=== PATIENT | male | born 1960 | race African-American/Black ===

== ENCOUNTER 2016-05-16 19:37 | Inpatient (IN) | payer OTHER ==
[~2016-05-16] VITALS: Ht 165.1 cm; Wt 57.1 kg
[~2016-05-16 19:37] MED LIST: ASPI-825 PO; GABA-529 PO; INSLAN SQ; [UNRECOGNIZED DRUG - REMARK]; [UNRECOGNIZED DRUG - REMARK]
[2016-05-16 19:51] LABS: GLUCOSE,POINT OF CARE 437 MG/DL (70-110)
[2016-05-16 20:41] LABS: EOSINOPHILS % (AUTO) 0 % (1.0-6.0); HEMATOCRIT 38.7 % (41-53); HEMOGLOBIN 12.4 g/dL (13.5-17.5); LYMPHOCYTES # (AUTO) 0.7 K/uL (1.0-4.8); LYMPHOCYTES % (AUTO) 6.3 % (22.0-44.0); MEAN CORPUSCULAR HEMOGLOBIN 27.8 pg (26.0-34.0); MEAN CORPUSCULAR VOLUME 87 fL (80-100); MONOCYTES # (AUTO) 0.4 K/uL (0.1-1.0); MONOCYTES % (AUTO) 3.8 % (2.0-9.0); NEUTROPHILS # (AUTO) 9.8 K/uL (1.8-7.7); NEUTROPHILS % (AUTO) 89.9 % (40.0-70.0); PLATELET COUNT (AUTO) 161 K/uL (150-450); RED BLOOD CELL COUNT(AUTO) 4.45 MIL/uL (4.50-5.90); RED CELL DISTRIBUTION WIDTH 14.1 % (11.5-14.5); WHITE BLOOD COUNT (AUTO) 10.9 K/uL (4.5-11.0)
[2016-05-16 21:00] LABS: ALANINE AMINOTRANSFERASE 83 U/L (12-78); ALBUMIN 2.3 g/dL (3.4-5.0); ANION GAP 6 mmol/L (8-16); ASPARTATE AMINOTRANSFERASE 46 U/L (15-37); BILIRUBIN,TOTAL 0.4 mg/dL (0.1-1.0); CALCIUM, TOTAL 9.1 mg/dL (8.8-10.5); CARBON DIOXIDE 29 mmol/L (22-29); CHLORIDE 98 mmol/L (98-107); CREATININE 0.97 mg/dL (0.60-1.30); GLOMERULAR FILTR. RATE CALC > 60 mL/min (>60); POTASSIUM 4.2 mmol/L (3.5-5.1); SODIUM SERUM 133 mmol/L (136-145); TOTAL PROTEIN, SERUM 6.7 g/dL (6.4-8.2); UREA NITROGEN, BLOOD 11 mg/dL (7-18)
[2016-05-16] MEDS ORDERED: MAGNESIUM HYDROXIDE SUSPENSION 30 ML UDCUP PO PRN (21:00)
[2016-05-16] MEDS ORDERED: INSULIN DETEMIR 100 UNITS/ML SQ SCH (21:00)
[2016-05-16] MEDS ORDERED: ALBUTEROL SULFATE 2.5 MG/0.5 ML NEB SOLUTION NEB PRN (21:00)
[2016-05-16] MEDS ORDERED: ACETAMINOPHEN 325 MG TABLET PO PRN (21:00)
[2016-05-16 21:06] LABS: LACTIC ACID 2.5 mmol/L (0.4-2.0)
[2016-05-16] MEDS ORDERED: SODIUM CHLORIDE 0.9% 1,000 ML IV ONE (21:15)
[2016-05-16] MEDS: DOCUSATE SODIUM 100 MG CAPSULE PO SCH (21:42)
[2016-05-16 22:27] LABS: REFLEX LACTIC ACID? YES YES
[2016-05-16] MEDS: INSULIN DETEMIR 100 UNITS/ML SQ SCH (22:33)
[2016-05-16] MEDS: HEPARIN SODIUM,PORCINE 5,000 UNITS/ML VIAL SQ SCH (23:56)
[2016-05-16] MEDS: INSULIN ASPART 100 UNITS/ML SQ PRN (23:56)
[2016-05-16] MEDS: OxyCODONE HCL/ACETAMINOPHEN 5-325 MG TABLET PO PRN (23:56)
[2016-05-16 23:57] LABS: GLUCOSE COMMENT 1 Received Meds; GLUCOSE,POINT OF CARE 340 MG/DL (70-110)
[2016-05-17] VITALS (9 sets, daily range): BP systolic 100–130; BP diastolic 56–87
[2016-05-17 06:16] LABS: GLUCOSE COMMENT 1 Juice/Food/D50 Given; GLUCOSE,POINT OF CARE 51 MG/DL (70-110)
[2016-05-17 06:17] LABS: GLUCOSE COMMENT 1 Juice/Food/D50 Given; GLUCOSE,POINT OF CARE 79 MG/DL (70-110)
[2016-05-17] MEDS: OxyCODONE HCL/ACETAMINOPHEN 5-325 MG TABLET PO PRN ×4 (06:27→19:56)
[2016-05-17] MEDS: HEPARIN SODIUM,PORCINE 5,000 UNITS/ML VIAL SQ SCH ×2 (08:00→15:36)
[2016-05-17] MEDS: DOCUSATE SODIUM 100 MG CAPSULE PO SCH ×2 (08:12→19:56)
[2016-05-17] MEDS: MULTIVITAMINS WITH MINERALS, THERAPEUTIC TABLET PO SCH (08:12)
[2016-05-17] MEDS: PANTOPRAZOLE SODIUM 40 MG DR TABLET PO SCH (08:12)
[2016-05-17] MEDS: ASPIRIN 81 MG CHEWABLE TABLET PO SCH (08:12)
[2016-05-17 08:14] LABS: APPEARANCE,URINE CLEAR (CLEAR); GLUCOSE, URINE (UA) >=1000 mg/dL (NEGATIVE); KETONES,URINE NEGATIVE (NEGATIVE); LEUKOCYTE ESTERASE ,URINE NEGATIVE (NEGATIVE); OCCULT BLOOD,URINE TRACE (NEGATIVE); PROTEIN,URINE SEE CONFIRM (NEGATIVE)
[2016-05-17 08:16] LABS: ADD UA MICROSCOPIC YES
[2016-05-17 08:20] LABS: SULFOSALICYLIC ACID,URINE 2+ (Negative)
[2016-05-17 08:21] LABS: RBC,URINE 0-2 /HPF (0-2); SQUAMOUS EPITHELIAL CELL,UR Few /LPF (None Seen); WBC,URINE 0-2 /HPF (0-5)
[2016-05-17] MEDS: INSULIN ASPART 100 UNITS/ML SQ PRN (11:26)
[2016-05-17 12:06] LABS: GLUCOSE COMMENT 1 Received Meds; GLUCOSE,POINT OF CARE 188 MG/DL (70-110)
[2016-05-17] MEDS: DEXTROSE 50%-WATER 25 GM/50 ML SYRINGE IVP PRN (17:21)
[2016-05-17 17:41] LABS: GLUCOSE,POINT OF CARE 33 MG/DL (70-110)
[2016-05-17 17:41] LABS: GLUCOSE COMMENT 1 Repeated; GLUCOSE,POINT OF CARE 172 MG/DL (70-110)
[2016-05-17 18:50] LABS: GLUCOSE COMMENT 1 Repeated; GLUCOSE,POINT OF CARE 222 MG/DL (70-110)
[2016-05-17 20:35] LABS: GLUCOSE COMMENT 1 Received Meds; GLUCOSE,POINT OF CARE 210 MG/DL (70-110)
[2016-05-17] MEDS: INSULIN DETEMIR 100 UNITS/ML SQ SCH (20:40)
[2016-05-17] MEDS: LORazepam 2 MG/ML VIAL IVP PRN (20:50)
[2016-05-17] MEDS: CARVEDILOL 6.25 MG TABLET PO SCH (22:23)
[2016-05-18] VITALS (8 sets, daily range): BP systolic 85–118; BP diastolic 23–75
[2016-05-18] MEDS: HEPARIN SODIUM,PORCINE 5,000 UNITS/ML VIAL SQ SCH ×3 (00:08→16:28)
[2016-05-18] MEDS: OxyCODONE HCL/ACETAMINOPHEN 5-325 MG TABLET PO PRN ×4 (02:50→21:21)
[2016-05-18] MEDS ORDERED: PNEUMOCOCCAL VACCINE POLYVALENT 0.5 ML VIAL [PPSV23] IM ONE (04:15)
[2016-05-18] MEDS: INSULIN ASPART 100 UNITS/ML SQ PRN ×4 (06:08→21:36)
[2016-05-18 07:20] LABS: BASOPHILS % (AUTO) 0.1 % (0.0-2.0); EOSINOPHILS % (AUTO) 0 % (1.0-6.0); HEMATOCRIT 42.5 % (41-53); HEMOGLOBIN 13.4 g/dL (13.5-17.5); LYMPHOCYTES # (AUTO) 0.8 K/uL (1.0-4.8); LYMPHOCYTES % (AUTO) 4.1 % (22.0-44.0); MEAN CORPUSCULAR HEMOGLOBIN 27.7 pg (26.0-34.0); MEAN CORPUSCULAR HGB CONC 31.5 G/dL (31.0-37.0); MEAN CORPUSCULAR VOLUME 88 fL (80-100); MONOCYTES # (AUTO) 1.1 K/uL (0.1-1.0); MONOCYTES % (AUTO) 5.7 % (2.0-9.0); NEUTROPHILS # (AUTO) 17.2 K/uL (1.8-7.7); PLATELET COUNT (AUTO) 162 K/uL (150-450); RED BLOOD CELL COUNT(AUTO) 4.83 MIL/uL (4.50-5.90); RED CELL DISTRIBUTION WIDTH 14.3 % (11.5-14.5); WHITE BLOOD COUNT (AUTO) 19.1 K/uL (4.5-11.0)
[2016-05-18 07:29] LABS: NEUTROPHILS % (AUTO) 90.1 % (40.0-70.0)
[2016-05-18 07:31] LABS: ANION GAP 7 mmol/L (8-16); CALCIUM, TOTAL 9.6 mg/dL (8.8-10.5); CARBON DIOXIDE 28 mmol/L (22-29); CHLORIDE 95 mmol/L (98-107); CREATININE 1.14 mg/dL (0.60-1.30); GLOMERULAR FILTR. RATE CALC > 60 mL/min (>60); POTASSIUM 5.2 mmol/L (3.5-5.1); SODIUM SERUM 130 mmol/L (136-145); UREA NITROGEN, BLOOD 18 mg/dL (7-18)
[2016-05-18] MEDS: DOCUSATE SODIUM 100 MG CAPSULE PO SCH ×2 (08:04→21:20)
[2016-05-18] MEDS: CARVEDILOL 6.25 MG TABLET PO SCH ×2 (08:04→21:21)
[2016-05-18] MEDS: MULTIVITAMINS WITH MINERALS, THERAPEUTIC TABLET PO SCH (08:04)
[2016-05-18] MEDS: PANTOPRAZOLE SODIUM 40 MG DR TABLET PO SCH (08:04)
[2016-05-18] MEDS: ASPIRIN 81 MG CHEWABLE TABLET PO SCH (08:05)
[2016-05-18 08:16] LABS: GLUCOSE COMMENT 1 Received Meds; GLUCOSE,POINT OF CARE 268 MG/DL (70-110)
[2016-05-18 11:51] LABS: GLUCOSE,POINT OF CARE 199 MG/DL (70-110)
[2016-05-18] MEDS ORDERED: SODIUM CHLORIDE 0.9% 1,000 ML IV ONE (12:04)
[2016-05-18] MEDS ORDERED: PHENYLEPHRINE 200 MG/D5%-WATER 250 ML IV ONE (14:23)
[2016-05-18] MEDS ORDERED: SODIUM CHLORIDE 0.9% 250 ML IV ONE ×2 (14:40→19:20)
[2016-05-18] MEDS ORDERED: 0.9% SODIUM CHLORIDE 10 ML SYRINGE IVP PRN (14:45)
[2016-05-18] MEDS: PIPERACILLIN/TAZO 3.375 GM/D5W 50 ML IV SCH ×2 (15:38→21:20)
[2016-05-18] MEDS: PHENYLEPHRINE 200 MG/D5%-WATER 250 ML IV PRN (16:39)
[2016-05-18] MEDS: LORazepam 2 MG/ML VIAL IVP PRN (21:20)
[2016-05-18 23:05] LABS: GLUCOSE COMMENT 1 Received Meds; GLUCOSE,POINT OF CARE 156 MG/DL (70-110)
[2016-05-19] VITALS: BP 68/36
[2016-05-19] MEDS: HEPARIN SODIUM,PORCINE 5,000 UNITS/ML VIAL SQ SCH ×3 (00:16→17:48)
[2016-05-19 03:02] LABS: ABG A-A DIFF O2 216.8 mmHg (10-20.0); ABG BASE EXCESS -6.6 mmol/L (-2.0-3.0); ABG HCO3 20.8 mmol/L (22.0-26.0); ABG OXYHEMOGLOBIN 98.3 % (94.0-100.0); ABG PCO2 24 mmHg (35-45); ABG PH 7.474 (7.35-7.450); ALLEN TEST, BLOOD GAS Positive; IPAP, BG 14 cm H2O; TEMPERATURE, FAHRENHEIT, BG 98.6 FAHREN (96.0-98.6)
[2016-05-19] MEDS: PIPERACILLIN/TAZO 3.375 GM/D5W 50 ML IV SCH ×4 (03:12→20:22)
[2016-05-19 03:41] LABS: HEMATOCRIT 49.3 % (41-53); MEAN CORPUSCULAR HEMOGLOBIN 27.9 pg (26.0-34.0); MEAN CORPUSCULAR HGB CONC 32.5 G/dL (31.0-37.0); MEAN CORPUSCULAR VOLUME 86 fL (80-100); PLATELET COUNT (AUTO) 148 K/uL (150-450); RED BLOOD CELL COUNT(AUTO) 5.75 MIL/uL (4.50-5.90); RED CELL DISTRIBUTION WIDTH 14.4 % (11.5-14.5); WHITE BLOOD COUNT (AUTO) 17.3 K/uL (4.5-11.0)
[2016-05-19 03:44] LABS: CALCIUM, TOTAL 8.9 mg/dL (8.8-10.5); CREATININE 1.53 mg/dL (0.60-1.30); MAGNESIUM 2.1 mg/dL (1.80-2.40); POTASSIUM 5.5 mmol/L (3.5-5.1)
[2016-05-19 03:54] LABS: BAND NEUTROPHILS % (MANUAL) 32 % (1-5); LYMPHOCYTES % (MANUAL) 4 % (22-44); REACTIVE LYMPHOCYTES 7 % (0-0); TOTAL CELLS COUNTED 100
[2016-05-19 04:00] VITALS: BP 87/58
[2016-05-19 04:01] LABS: GLUCOSE,POINT OF CARE 170 MG/DL (70-110)
[2016-05-19] MEDS: DEXTROSE 50%-WATER 25 GM/50 ML SYRINGE IVP PRN ×3 (04:34→15:08)
[2016-05-19 06:34] LABS: LACTIC ACID 6.3 mmol/L (0.4-2.0)
[2016-05-19 07:52] LABS: REFLEX LACTIC ACID? YES YES
[2016-05-19 08:00] VITALS: BP 109/52
[2016-05-19] MEDS: ASPIRIN 81 MG CHEWABLE TABLET PO SCH (09:00)
[2016-05-19] MEDS: PANTOPRAZOLE SODIUM 40 MG DR TABLET PO SCH (09:00)
[2016-05-19] MEDS: MULTIVITAMINS WITH MINERALS, THERAPEUTIC TABLET PO SCH (09:00)
[2016-05-19] MEDS: CARVEDILOL 6.25 MG TABLET PO SCH ×2 (09:00→21:00)
[2016-05-19] MEDS: DOCUSATE SODIUM 100 MG CAPSULE PO SCH ×2 (09:00→21:00)
[2016-05-19] MEDS ORDERED: SODIUM CHLORIDE 0.9% 1,000 ML IV SCH (10:00)
[2016-05-19] MEDS: PHENYLEPHRINE 200 MG/D5%-WATER 250 ML IV PRN ×2 (10:09→20:26)
[2016-05-19] MEDS ORDERED: SODIUM CHLORIDE 0.9% 500 ML IV ONE ×3 (10:51→19:45)
[2016-05-19 11:06] LABS: GLUCOSE,POINT OF CARE 76 MG/DL (70-110)
[2016-05-19 11:06] LABS: GLUCOSE,POINT OF CARE 107 MG/DL (70-110)
[2016-05-19 11:06] LABS: GLUCOSE COMMENT 1 Received Meds; GLUCOSE,POINT OF CARE < 10 MG/DL (70-110)
[2016-05-19] MEDS ORDERED: RAPID SEQUENCE KIT [RSI] 1 EACH KIT ONE ×2 (11:10)
[2016-05-19 11:24] LABS: ABG BASE EXCESS -7.3 mmol/L (-2.0-3.0); ABG HCO3 20.7 mmol/L (22.0-26.0); ABG OXYHEMOGLOBIN 97.8 % (94.0-100.0); ABG PCO2 20 mmHg (35-45); ABG PH 7.509 (7.35-7.450); TEMPERATURE, FAHRENHEIT, BG 98.6 FAHREN (96.0-98.6)
[2016-05-19 11:25] LABS: ALLEN TEST, BLOOD GAS Positive; IPAP, BG 12 cm H2O
[2016-05-19 12:00] VITALS: BP 103/57
[2016-05-19] MEDS: DEXTROSE 5%-0.45% SODIUM CHL 1,000 ML IV SCH (13:00)
[2016-05-19] MEDS ORDERED: PROPOFOL 1000 MG/ISO-OSM 100 ML IV PRN (13:26)
[2016-05-19] MEDS ORDERED: *CLINICAL-RENAL DOSING MEDICATIONS CLINICAL ONE ×2 (13:30)
[2016-05-19] MEDS ORDERED: VANCOMYCIN HCL 1 GM/D5% WATER 200 ML IV ONE (14:00)
[2016-05-19 15:23] LABS: ABG PH 7.401 (7.35-7.450); TEMPERATURE, FAHRENHEIT, BG 98.6 FAHREN (96.0-98.6)
[2016-05-19 15:26] LABS: ABG A-A DIFF O2 52.6 mmHg (10-20.0); ABG BASE EXCESS -7.4 mmol/L (-2.0-3.0); ABG HCO3 19.7 mmol/L (22.0-26.0); ABG OXYHEMOGLOBIN 97.1 % (94.0-100.0); ABG PCO2 29 mmHg (35-45)
[2016-05-19 16:00] VITALS: BP 111/64
[2016-05-19 16:04] LABS: CALCIUM, TOTAL 8.1 mg/dL (8.8-10.5); POTASSIUM 5.2 mmol/L (3.5-5.1)
[2016-05-19] MEDS ORDERED: VECURONIUM BROMIDE 10 MG/VIAL IV ONE (16:45)
[2016-05-19] MEDS ORDERED: ETOMIDATE 2 MG/ML 10 ML VIAL IV ONE (16:45)
[2016-05-19 17:20] LABS: INR 2.1 (0.9-1.1); PARTIAL THROMBOPLASTIN TIME 43 SEC (25-35); PROTHROMBIN TIME 21.9 SEC (9.4-11.6)
[2016-05-19 17:34] LABS: FIBRINOGEN 680 mg/dL (200-400)
[2016-05-19] MEDS ORDERED: HEPARIN SODIUM,PORCINE 5,000 UNITS/ML VIAL IVP ONE (18:30)
[2016-05-19] MEDS ORDERED: HEPARIN SODIUM,PORCINE 5,000 UNITS/ML VIAL IVP PRN (18:30)
[2016-05-19 18:39] LABS: CREATINE KINASE MB 27.8 ng/mL (0-5)
[2016-05-19] MEDS: NOREPINEPHRINE 4 MG/D5%-WATER 250 ML IV PRN (18:39)
[2016-05-19 18:41] LABS: GLUCOSE COMMENT 1 Doctor Notified; GLUCOSE,POINT OF CARE 12 MG/DL (70-110)
[2016-05-19 18:41] LABS: GLUCOSE COMMENT 1 Juice/Food/D50 Given; GLUCOSE,POINT OF CARE 55 MG/DL (70-110)
[2016-05-19 18:46] LABS: GLUCOSE,POINT OF CARE 131 MG/DL (70-110)
[2016-05-19 20:00] VITALS: BP 116/67
[2016-05-19] MEDS ORDERED: VANCOMYCIN HCL 500 MG in DEXTROSE 5%-WATER 100 ML IV SCH (20:00)
[2016-05-19] MEDS: HEPARIN SODIUM 25000 UNITS/D5W 250 ML IV PRN (20:24)
[2016-05-20] VITALS: BP 120/65
[2016-05-20] MEDS: INSULIN ASPART 100 UNITS/ML SQ PRN ×3 (01:11→11:54)
[2016-05-20 01:17] LABS: GLUCOSE COMMENT 1 Received Meds; GLUCOSE,POINT OF CARE 293 MG/DL (70-110)
[2016-05-20 01:17] LABS: GLUCOSE COMMENT 1 Received Meds; GLUCOSE,POINT OF CARE 326 MG/DL (70-110)
[2016-05-20] MEDS: AMPICILLIN SODIUM/SULBACTAM NA 3 GM in SODIUM CHLORIDE 0.9% 100 ML IV SCH ×3 (02:03→18:01)
[2016-05-20] MEDS: DEXTROSE 5%-0.45% SODIUM CHL 1,000 ML IV SCH (02:04)
[2016-05-20 04:00] VITALS: BP 102/60
[2016-05-20 05:46] LABS: CALCIUM, TOTAL 7.5 mg/dL (8.8-10.5); CREATININE 2.22 mg/dL (0.60-1.30); POTASSIUM 4.9 mmol/L (3.5-5.1)
[2016-05-20 06:21] LABS: BASOPHILS # (AUTO) 0.01 K/uL (0.00-0.20); BASOPHILS % (AUTO) 0.1 % (0.0-2.0); EOSINOPHILS % (AUTO) 0 % (1.0-6.0); HEMATOCRIT 39.1 % (41-53); HEMOGLOBIN 12.9 g/dL (13.5-17.5); LYMPHOCYTES # (AUTO) 1.1 K/uL (1.0-4.8); LYMPHOCYTES % (AUTO) 6.8 % (22.0-44.0); MEAN CORPUSCULAR HEMOGLOBIN 28.3 pg (26.0-34.0); MEAN CORPUSCULAR VOLUME 86 fL (80-100); MONOCYTES # (AUTO) 0.5 K/uL (0.1-1.0); MONOCYTES % (AUTO) 3.1 % (2.0-9.0); NEUTROPHILS # (AUTO) 14.5 K/uL (1.8-7.7); PLATELET COUNT (AUTO) 169 K/uL (150-450); RED BLOOD CELL COUNT(AUTO) 4.57 MIL/uL (4.50-5.90); RED CELL DISTRIBUTION WIDTH 14.4 % (11.5-14.5); WHITE BLOOD COUNT (AUTO) 16.1 K/uL (4.5-11.0)
[2016-05-20 07:50] LABS: GLUCOSE COMMENT 1 Received Meds; GLUCOSE,POINT OF CARE 237 MG/DL (70-110)
[2016-05-20 08:00] VITALS: BP 108/60
[2016-05-20] MEDS: PANTOPRAZOLE SODIUM 40 MG DR TABLET PO SCH (09:00)
[2016-05-20 09:26] LABS: ABG A-A DIFF O2 49.4 mmHg (10-20.0); ABG BASE EXCESS -5.7 mmol/L (-2.0-3.0); ABG HCO3 21.7 mmol/L (22.0-26.0); ABG OXYHEMOGLOBIN 98.2 % (94.0-100.0); ABG PCO2 21 mmHg (35-45); ABG PH 7.529 (7.35-7.450); TEMPERATURE, FAHRENHEIT, BG 98.6 FAHREN (96.0-98.6)
[2016-05-20] MEDS: PHENYLEPHRINE 200 MG/D5%-WATER 250 ML IV PRN ×2 (09:52→22:24)
[2016-05-20] MEDS: MULTIVITAMINS WITH MINERALS, THERAPEUTIC TABLET PO SCH (09:52)
[2016-05-20] MEDS: CARVEDILOL 6.25 MG TABLET PO SCH ×2 (09:52→21:00)
[2016-05-20] MEDS: LORazepam 2 MG/ML VIAL IVP PRN (09:52)
[2016-05-20] MEDS: DOCUSATE SODIUM 100 MG CAPSULE PO SCH ×2 (09:52→21:12)
[2016-05-20] MEDS: ASPIRIN 81 MG CHEWABLE TABLET PO SCH (09:52)
[2016-05-20 10:40] LABS: NEUTROPHILS % (AUTO) 90.1 % (40.0-70.0)
[2016-05-20 12:00] VITALS: BP 82/49
[2016-05-20 13:10] LABS: GLUCOSE,POINT OF CARE 133 MG/DL (70-110)
[2016-05-20] MEDS ORDERED: SODIUM CHLORIDE 0.9% 250 ML IV ONE (14:40)
[2016-05-20 16:00] VITALS: BP 96/50
[2016-05-20] MEDS: DEXTROSE 50%-WATER 25 GM/50 ML SYRINGE IVP PRN (18:01)
[2016-05-20 18:41] LABS: GLUCOSE COMMENT 1 Received Meds; GLUCOSE,POINT OF CARE 69 MG/DL (70-110)
[2016-05-20 18:41] LABS: GLUCOSE,POINT OF CARE 102 MG/DL (70-110)
[2016-05-20 20:00] VITALS: BP 102/52
[2016-05-20] MEDS: HEPARIN SODIUM 25000 UNITS/D5W 250 ML IV PRN (21:17)
[2016-05-20] MEDS: NOREPINEPHRINE 4 MG/D5%-WATER 250 ML IV PRN (21:18)
[2016-05-20] MEDS ORDERED: DAPTOMYCIN 350 MG in SODIUM CHLORIDE 0.9% 50 ML IV SCH (22:00)
[2016-05-20 23:15] LABS: APPEARANCE,URINE CLOUDY (CLEAR); GLUCOSE, URINE (UA) NEGATIVE (NEGATIVE); KETONES,URINE NEGATIVE (NEGATIVE); LEUKOCYTE ESTERASE ,URINE NEGATIVE (NEGATIVE); OCCULT BLOOD,URINE LARGE (NEGATIVE); PH,URINE 5.5 (5.0-8.0); PROTEIN,URINE POS 1+ (NEGATIVE)
[2016-05-21] VITALS (7 sets, daily range): BP systolic 92–123; BP diastolic 48–68
[2016-05-21 00:34] LABS: SQUAMOUS EPITHELIAL CELL,UR Few /LPF (None Seen)
[2016-05-21] MEDS: AMPICILLIN SODIUM/SULBACTAM NA 3 GM in SODIUM CHLORIDE 0.9% 100 ML IV SCH ×3 (02:06→17:40)
[2016-05-21 03:26] LABS: GLUCOSE,POINT OF CARE 122 MG/DL (70-110)
[2016-05-21 05:35] LABS: BASOPHILS # (AUTO) 0.05 K/uL (0.00-0.20); BASOPHILS % (AUTO) 0.3 % (0.0-2.0); EOSINOPHILS # (AUTO) 0.04 K/uL (0.00-0.70); EOSINOPHILS % (AUTO) 0.22 % (1.0-6.0); HEMATOCRIT 37.8 % (41-53); HEMOGLOBIN 12.3 g/dL (13.5-17.5); LYMPHOCYTES # (AUTO) 1.2 K/uL (1.0-4.8); LYMPHOCYTES % (AUTO) 7.3 % (22.0-44.0); MEAN CORPUSCULAR HEMOGLOBIN 27.9 pg (26.0-34.0); MEAN CORPUSCULAR HGB CONC 32.5 G/dL (31.0-37.0); MEAN CORPUSCULAR VOLUME 86 fL (80-100); MONOCYTES # (AUTO) 0.9 K/uL (0.1-1.0); MONOCYTES % (AUTO) 5.4 % (2.0-9.0); NEUTROPHILS # (AUTO) 14.2 K/uL (1.8-7.7); PLATELET COUNT (AUTO) 171 K/uL (150-450); RED CELL DISTRIBUTION WIDTH 14.5 % (11.5-14.5); WHITE BLOOD COUNT (AUTO) 16.4 K/uL (4.5-11.0)
[2016-05-21 05:48] LABS: NEUTROPHILS % (AUTO) 86.7 % (40.0-70.0)
[2016-05-21] MEDS: INSULIN ASPART 100 UNITS/ML SQ PRN ×2 (05:51→23:37)
[2016-05-21 05:54] LABS: ANION GAP 13 mmol/L (8-16); CALCIUM, TOTAL 7.7 mg/dL (8.8-10.5); CARBON DIOXIDE 18 mmol/L (22-29); CHLORIDE 94 mmol/L (98-107); CREATININE 2.69 mg/dL (0.60-1.30); GLOMERULAR FILTR. RATE CALC 30 mL/min (>60); POTASSIUM 4.9 mmol/L (3.5-5.1); SODIUM SERUM 125 mmol/L (136-145); UREA NITROGEN, BLOOD 63 mg/dL (7-18)
[2016-05-21 06:28] LABS: LACTIC ACID 3.3 mmol/L (0.4-2.0)
[2016-05-21] MEDS ORDERED: SODIUM CHLORIDE 0.9% 500 ML IV ONE ×2 (06:28→17:37)
[2016-05-21 07:25] LABS: REFLEX LACTIC ACID? YES YES
[2016-05-21] MEDS: CARVEDILOL 6.25 MG TABLET PO SCH ×2 (08:29→21:00)
[2016-05-21 08:40] LABS: RBC MORPHOLOGY COMMENT NORMAL RBC MORPH
[2016-05-21 09:01] LABS: GLUCOSE COMMENT 1 Received Meds; GLUCOSE,POINT OF CARE 181 MG/DL (70-110)
[2016-05-21] MEDS: OxyCODONE HCL/ACETAMINOPHEN 5-325 MG TABLET PO PRN (09:07)
[2016-05-21] MEDS: ASPIRIN 81 MG CHEWABLE TABLET PO SCH (09:07)
[2016-05-21] MEDS: MULTIVITAMINS WITH MINERALS, THERAPEUTIC TABLET PO SCH (09:07)
[2016-05-21] MEDS: PANTOPRAZOLE SODIUM 40 MG DR TABLET PO SCH (09:07)
[2016-05-21] MEDS: DOCUSATE SODIUM 100 MG CAPSULE PO SCH ×2 (09:07→21:40)
[2016-05-21] MEDS ORDERED: PHENYLEPHRINE HCL 400 MG in DEXTROSE 5%-WATER 210 ML IV PRN (11:40)
[2016-05-21] MEDS: DEXTROSE 50%-WATER 25 GM/50 ML SYRINGE IVP PRN (12:03)
[2016-05-21] MEDS: NOREPINEPHRINE BITARTRATE 8 MG in DEXTROSE 5%-WATER 242 ML IV PRN (14:19)
[2016-05-21 16:13] LABS: INR 1.4 (0.9-1.1); PROTHROMBIN TIME 14.9 SEC (9.4-11.6)
[2016-05-21 17:08] LABS: CALCIUM, TOTAL 7.5 mg/dL (8.8-10.5); CREATININE 2.79 mg/dL (0.60-1.30); POTASSIUM 5.2 mmol/L (3.5-5.1)
[2016-05-21] MEDS: MINERAL OIL/PETROLATUM 120 GM CREAM TP SCH (17:40)
[2016-05-22] VITALS (10 sets, daily range): BP systolic 98–118; BP diastolic 49–61
[2016-05-22] MEDS: AMPICILLIN SODIUM/SULBACTAM NA 3 GM in SODIUM CHLORIDE 0.9% 100 ML IV SCH ×3 (01:52→17:17)
[2016-05-22] MEDS: OxyCODONE HCL/ACETAMINOPHEN 5-325 MG TABLET PO PRN ×2 (01:52→14:56)
[2016-05-22] MEDS: HEPARIN SODIUM 25000 UNITS/D5W 250 ML IV PRN ×2 (03:47→08:01)
[2016-05-22 05:41] LABS: CALCIUM, TOTAL 7.7 mg/dL (8.8-10.5); CREATININE 2.89 mg/dL (0.60-1.30); POTASSIUM 5.4 mmol/L (3.5-5.1)
[2016-05-22] MEDS: INSULIN ASPART 100 UNITS/ML SQ PRN (06:17)
[2016-05-22] MEDS: PANTOPRAZOLE SODIUM 40 MG DR TABLET PO SCH (07:59)
[2016-05-22] MEDS: ASPIRIN 81 MG CHEWABLE TABLET PO SCH (07:59)
[2016-05-22] MEDS: DOCUSATE SODIUM 100 MG CAPSULE PO SCH ×2 (07:59→20:54)
[2016-05-22] MEDS: MULTIVITAMINS WITH MINERALS, THERAPEUTIC TABLET PO SCH (07:59)
[2016-05-22] MEDS: HEPARIN SODIUM,PORCINE 5,000 UNITS/ML VIAL IVP PRN (08:00)
[2016-05-22] MEDS: NOREPINEPHRINE BITARTRATE 8 MG in DEXTROSE 5%-WATER 242 ML IV PRN (08:01)
[2016-05-22] MEDS: MINERAL OIL/PETROLATUM 120 GM CREAM TP SCH (08:12)
[2016-05-22] MEDS: CARVEDILOL 6.25 MG TABLET PO SCH ×3 (08:13→20:56)
[2016-05-22 08:43] LABS: ABG A-A DIFF O2 54.3 mmHg (10-20.0); ABG BASE EXCESS -6.7 mmol/L (-2.0-3.0); ABG HCO3 20.3 mmol/L (22.0-26.0); ABG OXYHEMOGLOBIN 97.7 % (94.0-100.0); ABG PCO2 25 mmHg (35-45); ABG PH 7.453 (7.35-7.450); TEMPERATURE, FAHRENHEIT, BG 98.6 FAHREN (96.0-98.6)
[2016-05-22 13:23] LABS: APPEARANCE,UNSPUN,BODY FLUID CLOUDY (CLEAR); COLOR,BODY FLUID YELLOW (LT YELLOW)
[2016-05-22] MEDS ORDERED: SODIUM CHLORIDE 0.9% 250 ML IV ONE (14:19)
[2016-05-22] MEDS ORDERED: SODIUM CHLORIDE 0.9% 500 ML IV ONE (14:19)
[2016-05-22 18:36] LABS: GLUCOSE COMMENT 1 Received Meds; GLUCOSE,POINT OF CARE 213 MG/DL (70-110)
[2016-05-22 18:36] LABS: GLUCOSE COMMENT 1 Juice/Food/D50 Given; GLUCOSE,POINT OF CARE 65 MG/DL (70-110)
[2016-05-22 18:36] LABS: GLUCOSE,POINT OF CARE 133 MG/DL (70-110)
[2016-05-22 18:36] LABS: GLUCOSE,POINT OF CARE 159 MG/DL (70-110)
[2016-05-22 18:36] LABS: GLUCOSE COMMENT 1 Received Meds; GLUCOSE,POINT OF CARE 216 MG/DL (70-110)
[2016-05-22 18:36] LABS: GLUCOSE,POINT OF CARE 168 MG/DL (70-110)
[2016-05-22] MEDS: DAPTOMYCIN 350 MG in SODIUM CHLORIDE 0.9% 50 ML IV SCH (22:44)
[2016-05-23] VITALS: BP 106/51
[2016-05-23] MEDS: AMPICILLIN SODIUM/SULBACTAM NA 3 GM in SODIUM CHLORIDE 0.9% 100 ML IV SCH ×3 (01:10→16:53)
[2016-05-23] MEDS: NOREPINEPHRINE BITARTRATE 8 MG in DEXTROSE 5%-WATER 242 ML IV PRN (01:11)
[2016-05-23 01:32] LABS: GLUCOSE COMMENT 1 Received Meds; GLUCOSE,POINT OF CARE 168 MG/DL (70-110)
[2016-05-23] MEDS: INSULIN ASPART 100 UNITS/ML SQ PRN ×5 (01:55→23:31)
[2016-05-23 04:00] VITALS: BP 101/53
[2016-05-23 05:24] LABS: EOSINOPHILS % (AUTO) 0.2 % (1.0-6.0); HEMATOCRIT 32.2 % (41-53); HEMOGLOBIN 10.3 g/dL (13.5-17.5); LYMPHOCYTES % (AUTO) 3.4 % (22.0-44.0); MEAN CORPUSCULAR VOLUME 84 fL (80-100); MONOCYTES # (AUTO) 0.1 K/uL (0.1-1.0); MONOCYTES % (AUTO) 0.5 % (2.0-9.0); NEUTROPHILS # (AUTO) 27.2 K/uL (1.8-7.7); PLATELET COUNT (AUTO) 175 K/uL (150-450); RED BLOOD CELL COUNT(AUTO) 3.83 MIL/uL (4.50-5.90); RED CELL DISTRIBUTION WIDTH 14.4 % (11.5-14.5); WHITE BLOOD COUNT (AUTO) 28.4 K/uL (4.5-11.0)
[2016-05-23 05:28] LABS: NEUTROPHILS % (AUTO) 95.9 % (40.0-70.0)
[2016-05-23] MEDS: LORazepam 2 MG/ML VIAL IVP PRN ×2 (05:35→23:30)
[2016-05-23] MEDS ORDERED: SODIUM CHLORIDE 0.9% 500 ML IV ONE ×3 (06:00→23:38)
[2016-05-23 06:27] LABS: GLUCOSE COMMENT 1 Received Meds; GLUCOSE,POINT OF CARE 229 MG/DL (70-110)
[2016-05-23] MEDS: HEPARIN SODIUM,PORCINE 5,000 UNITS/ML VIAL IVP PRN (07:34)
[2016-05-23 07:45] LABS: CALCIUM, TOTAL 7.4 mg/dL (8.8-10.5); POTASSIUM 5.1 mmol/L (3.5-5.1)
[2016-05-23 08:00] VITALS: BP 101/51
[2016-05-23] MEDS: PANTOPRAZOLE SODIUM 40 MG DR TABLET PO SCH (08:32)
[2016-05-23] MEDS: ASPIRIN 81 MG CHEWABLE TABLET PO SCH (08:32)
[2016-05-23] MEDS: DOCUSATE SODIUM 100 MG CAPSULE PO SCH ×2 (08:33→22:16)
[2016-05-23] MEDS: MULTIVITAMINS WITH MINERALS, THERAPEUTIC TABLET PO SCH (08:33)
[2016-05-23] MEDS: OxyCODONE HCL/ACETAMINOPHEN 5-325 MG TABLET PO PRN ×2 (08:33→22:16)
[2016-05-23] MEDS: MINERAL OIL/PETROLATUM 120 GM CREAM TP SCH (08:33)
[2016-05-23] MEDS: CARVEDILOL 6.25 MG TABLET PO SCH ×2 (08:34→21:00)
[2016-05-23 12:00] VITALS: BP 96/44
[2016-05-23 16:00] VITALS: BP 96/44
[2016-05-23 17:40] LABS: TOTAL PROTEIN,BODY FLUID,REF 1.3 g/dL
[2016-05-23 20:00] VITALS: BP 92/43
[2016-05-23] MEDS ORDERED: SODIUM CHLORIDE 0.9% 250 ML IV ONE (23:38)
[2016-05-24] VITALS: BP 99/45
[2016-05-24] MEDS: AMPICILLIN SODIUM/SULBACTAM NA 3 GM in SODIUM CHLORIDE 0.9% 100 ML IV SCH ×3 (02:29→18:09)
[2016-05-24 03:05] LABS: APPEARANCE,URINE TURBID (CLEAR); GLUCOSE, URINE (UA) NEGATIVE (NEGATIVE); KETONES,URINE TRACE mg/dL (NEGATIVE); LEUKOCYTE ESTERASE ,URINE MODERATE (NEGATIVE); OCCULT BLOOD,URINE LARGE (NEGATIVE); PROTEIN,URINE POS 1+ (NEGATIVE)
[2016-05-24 03:28] LABS: SQUAMOUS EPITHELIAL CELL,UR Few /LPF (None Seen)
[2016-05-24 04:00] VITALS: BP 87/43
[2016-05-24] MEDS: INSULIN ASPART 100 UNITS/ML SQ PRN ×3 (05:53→18:08)
[2016-05-24 05:58] LABS: EOSINOPHILS % (AUTO) 0 % (1.0-6.0); HEMATOCRIT 30.3 % (41-53); HEMOGLOBIN 9.7 g/dL (13.5-17.5); LYMPHOCYTES # (AUTO) 0.7 K/uL (1.0-4.8); LYMPHOCYTES % (AUTO) 2.6 % (22.0-44.0); MEAN CORPUSCULAR HEMOGLOBIN 27.3 pg (26.0-34.0); MEAN CORPUSCULAR VOLUME 85 fL (80-100); MONOCYTES # (AUTO) 0.4 K/uL (0.1-1.0); MONOCYTES % (AUTO) 1.3 % (2.0-9.0); NEUTROPHILS # (AUTO) 27.6 K/uL (1.8-7.7); PLATELET COUNT (AUTO) 159 K/uL (150-450); RED BLOOD CELL COUNT(AUTO) 3.55 MIL/uL (4.50-5.90); RED CELL DISTRIBUTION WIDTH 14.4 % (11.5-14.5); WHITE BLOOD COUNT (AUTO) 28.7 K/uL (4.5-11.0)
[2016-05-24 06:34] LABS: ANION GAP 13 mmol/L (8-16); CALCIUM, TOTAL 7.5 mg/dL (8.8-10.5); CARBON DIOXIDE 19 mmol/L (22-29); CHLORIDE 93 mmol/L (98-107); CREATINE KINASE, TOTAL 158 U/L (39-308); CREATININE 3.26 mg/dL (0.60-1.30); GLOMERULAR FILTR. RATE CALC 24 mL/min (>60); POTASSIUM 4.4 mmol/L (3.5-5.1); SODIUM SERUM 125 mmol/L (136-145); UREA NITROGEN, BLOOD 84 mg/dL (7-18)
[2016-05-24 06:54] LABS: NEUTROPHILS % (AUTO) 96.1 % (40.0-70.0)
[2016-05-24 08:00] VITALS: BP 102/48
[2016-05-24] MEDS: DOCUSATE SODIUM 100 MG CAPSULE PO SCH ×2 (08:20→21:02)
[2016-05-24] MEDS: ASPIRIN 81 MG CHEWABLE TABLET PO SCH (08:20)
[2016-05-24] MEDS: CARVEDILOL 6.25 MG TABLET PO SCH ×2 (08:20→20:55)
[2016-05-24] MEDS: MULTIVITAMINS WITH MINERALS, THERAPEUTIC TABLET PO SCH (08:20)
[2016-05-24] MEDS ORDERED: LACTULOSE 20 GM/30 ML SOLUTION UDCUP PO PRN (09:15)
[2016-05-24] MEDS: MINERAL OIL/PETROLATUM 120 GM CREAM TP SCH (10:09)
[2016-05-24 10:53] LABS: ABG A-A DIFF O2 42.6 mmHg (10-20.0); ABG BASE EXCESS -6.6 mmol/L (-2.0-3.0); ABG HCO3 20.1 mmol/L (22.0-26.0); ABG OXYHEMOGLOBIN 98.5 % (94.0-100.0); ABG PCO2 27 mmHg (35-45); ABG PH 7.432 (7.35-7.450); TEMPERATURE, FAHRENHEIT, BG 98.6 FAHREN (96.0-98.6)
[2016-05-24] MEDS: PANTOPRAZOLE SODIUM 40 MG/VIAL IVP SCH (11:28)
[2016-05-24 12:00] VITALS: BP 109/51
[2016-05-24 16:00] VITALS: BP 108/51
[2016-05-24] MEDS: HEPARIN SODIUM 25000 UNITS/D5W 250 ML IV PRN (16:08)
[2016-05-24 20:00] VITALS: BP 112/52
[2016-05-24 20:27] LABS: GLUCOSE COMMENT 1 Received Meds; GLUCOSE,POINT OF CARE 241 MG/DL (70-110)
[2016-05-24 20:27] LABS: GLUCOSE COMMENT 1 Received Meds; GLUCOSE,POINT OF CARE 242 MG/DL (70-110)
[2016-05-24 20:27] LABS: GLUCOSE COMMENT 1 Received Meds; GLUCOSE,POINT OF CARE 190 MG/DL (70-110)
[2016-05-24] MEDS: BUMETANIDE 0.25 MG/ML 4 ML VIAL IVP SCH (21:02)
[2016-05-24] MEDS ORDERED: CASPOFUNGIN ACETATE 70 MG in SODIUM CHLORIDE 0.9% 250 ML IV ONE (22:00)
[2016-05-24] MEDS: DAPTOMYCIN 350 MG in SODIUM CHLORIDE 0.9% 50 ML IV SCH (23:25)
[2016-05-25] VITALS: BP 107/52
[2016-05-25] MEDS: VANCOMYCIN HCL 125 MG/2.5 ML SOLUTION ORAL.SYG PO SCH ×5 (00:07→23:31)
[2016-05-25] MEDS: INSULIN ASPART 100 UNITS/ML SQ PRN ×5 (00:08→23:32)
[2016-05-25] MEDS: AMPICILLIN SODIUM/SULBACTAM NA 3 GM in SODIUM CHLORIDE 0.9% 100 ML IV SCH ×3 (02:04→17:44)
[2016-05-25] MEDS: LORazepam 2 MG/ML VIAL IVP PRN (02:06)
[2016-05-25 04:00] VITALS: BP 108/58
[2016-05-25] MEDS ORDERED: SODIUM CHLORIDE 0.9% 250 ML IV ONE ×2 (04:25→08:06)
[2016-05-25] MEDS ORDERED: SODIUM CHLORIDE 0.9% 500 ML IV ONE (04:40)
[2016-05-25 05:49] LABS: BILIRUBIN,TOTAL 2.4 mg/dL (0.1-1.0); CALCIUM, TOTAL 7.5 mg/dL (8.8-10.5); CREATININE 3.35 mg/dL (0.60-1.30); POTASSIUM 3.8 mmol/L (3.5-5.1); TOTAL PROTEIN, SERUM 6.3 g/dL (6.4-8.2)
[2016-05-25 07:33] LABS: PROCALCITONIN (PCT) 15.5 ng/mL (<0.50)
[2016-05-25 08:00] VITALS: BP 110/51
[2016-05-25] MEDS: BUMETANIDE 0.25 MG/ML 4 ML VIAL IVP SCH ×2 (08:07→21:25)
[2016-05-25] MEDS: ASPIRIN 81 MG CHEWABLE TABLET PO SCH (08:08)
[2016-05-25] MEDS: PANTOPRAZOLE SODIUM 40 MG/VIAL IVP SCH (08:08)
[2016-05-25] MEDS: CARVEDILOL 6.25 MG TABLET PO SCH ×2 (08:09→21:00)
[2016-05-25] MEDS: DOCUSATE SODIUM 100 MG CAPSULE PO SCH ×3 (08:09→21:00)
[2016-05-25] MEDS: MULTIVITAMINS WITH MINERALS, THERAPEUTIC TABLET PO SCH (08:10)
[2016-05-25] MEDS: MINERAL OIL/PETROLATUM 120 GM CREAM TP SCH (08:12)
[2016-05-25 08:49] LABS: EOSINOPHILS % (AUTO) 0.1 % (1.0-6.0); HEMOGLOBIN 9.8 g/dL (13.5-17.5); LYMPHOCYTES # (AUTO) 0.8 K/uL (1.0-4.8); LYMPHOCYTES % (AUTO) 2.9 % (22.0-44.0); MEAN CORPUSCULAR HEMOGLOBIN 27.7 pg (26.0-34.0); MEAN CORPUSCULAR HGB CONC 32.4 G/dL (31.0-37.0); MEAN CORPUSCULAR VOLUME 85 fL (80-100); MONOCYTES # (AUTO) 0.1 K/uL (0.1-1.0); MONOCYTES % (AUTO) 0.2 % (2.0-9.0); NEUTROPHILS # (AUTO) 25.4 K/uL (1.8-7.7); PLATELET COUNT (AUTO) 155 K/uL (150-450); RED BLOOD CELL COUNT(AUTO) 3.52 MIL/uL (4.50-5.90); RED CELL DISTRIBUTION WIDTH 14.5 % (11.5-14.5); WHITE BLOOD COUNT (AUTO) 26.2 K/uL (4.5-11.0)
[2016-05-25 08:59] LABS: NEUTROPHILS % (AUTO) 96.8 % (40.0-70.0)
[2016-05-25 09:32] LABS: GLUCOSE COMMENT 1 Received Meds; GLUCOSE,POINT OF CARE 319 MG/DL (70-110)
[2016-05-25 11:07] LABS: GLUCOSE COMMENT 1 Received Meds; GLUCOSE,POINT OF CARE 240 MG/DL (70-110)
[2016-05-25 11:07] LABS: GLUCOSE COMMENT 1 Received Meds; GLUCOSE,POINT OF CARE 170 MG/DL (70-110)
[2016-05-25 12:00] VITALS: BP 104/53
[2016-05-25 16:00] VITALS: BP 111/53
[2016-05-25] MEDS: HEPARIN SODIUM 25000 UNITS/D5W 250 ML IV PRN (17:42)
[2016-05-25 20:00] VITALS: BP 113/52
[2016-05-25] MEDS: CASPOFUNGIN ACETATE 50 MG in SODIUM CHLORIDE 0.9% 250 ML IV SCH (22:17)
[2016-05-26] VITALS (7 sets, daily range): BP systolic 87–119; BP diastolic 51–65
[2016-05-26] MEDS: LORazepam 2 MG/ML VIAL IVP PRN ×2 (01:38→11:24)
[2016-05-26] MEDS: AMPICILLIN SODIUM/SULBACTAM NA 3 GM in SODIUM CHLORIDE 0.9% 100 ML IV SCH ×3 (01:39→18:00)
[2016-05-26] MEDS: VANCOMYCIN HCL 125 MG/2.5 ML SOLUTION ORAL.SYG PO SCH ×3 (05:41→18:09)
[2016-05-26] MEDS: INSULIN ASPART 100 UNITS/ML SQ PRN ×3 (05:42→16:51)
[2016-05-26 05:55] LABS: BASOPHILS # (AUTO) 0.01 K/uL (0.00-0.20); EOSINOPHILS # (AUTO) 0.03 K/uL (0.00-0.70); EOSINOPHILS % (AUTO) 0.11 % (1.0-6.0); HEMATOCRIT 28.9 % (41-53); HEMOGLOBIN 9.6 g/dL (13.5-17.5); LYMPHOCYTES # (AUTO) 0.8 K/uL (1.0-4.8); LYMPHOCYTES % (AUTO) 2.9 % (22.0-44.0); MEAN CORPUSCULAR HEMOGLOBIN 27.4 pg (26.0-34.0); MEAN CORPUSCULAR HGB CONC 33.1 G/dL (31.0-37.0); MEAN CORPUSCULAR VOLUME 83 fL (80-100); MONOCYTES # (AUTO) 0.6 K/uL (0.1-1.0); MONOCYTES % (AUTO) 2.1 % (2.0-9.0); PLATELET COUNT (AUTO) 170 K/uL (150-450); RED BLOOD CELL COUNT(AUTO) 3.49 MIL/uL (4.50-5.90); RED CELL DISTRIBUTION WIDTH 14.8 % (11.5-14.5); WHITE BLOOD COUNT (AUTO) 27.4 K/uL (4.5-11.0)
[2016-05-26 06:05] LABS: BILIRUBIN,TOTAL 1.8 mg/dL (0.1-1.0); CALCIUM, TOTAL 7.7 mg/dL (8.8-10.5); CREATININE 3.31 mg/dL (0.60-1.30); MAGNESIUM 2.4 mg/dL (1.80-2.40); PHOSPHORUS 4.3 mg/dL (2.5-4.9); TOTAL PROTEIN, SERUM 6.6 g/dL (6.4-8.2)
[2016-05-26 07:05] LABS: NEUTROPHILS % (AUTO) 94.9 % (40.0-70.0)
[2016-05-26] MEDS: CARVEDILOL 6.25 MG TABLET PO SCH ×2 (07:43→21:07)
[2016-05-26] MEDS ORDERED: SODIUM CHLORIDE 0.9% 250 ML IV ONE (08:06)
[2016-05-26] MEDS: DOCUSATE SODIUM 100 MG CAPSULE PO SCH ×2 (08:11→21:00)
[2016-05-26] MEDS: ASPIRIN 81 MG CHEWABLE TABLET PO SCH (08:11)
[2016-05-26] MEDS: MULTIVITAMINS WITH MINERALS, THERAPEUTIC TABLET PO SCH (08:11)
[2016-05-26] MEDS: PANTOPRAZOLE SODIUM 40 MG/VIAL IVP SCH (08:11)
[2016-05-26] MEDS: BUMETANIDE 0.25 MG/ML 4 ML VIAL IVP SCH (08:11)
[2016-05-26] MEDS: MINERAL OIL/PETROLATUM 120 GM CREAM TP SCH (08:12)
[2016-05-26] MEDS: POTASSIUM CHL 10 MEQ/WATER 50 ML IV SCH ×4 (09:28→19:04)
[2016-05-26 11:47] LABS: GLUCOSE COMMENT 1 Received Meds; GLUCOSE,POINT OF CARE 173 MG/DL (70-110)
[2016-05-26] MEDS ORDERED: SODIUM CHLORIDE 0.9% 500 ML IV ONE (12:43)
[2016-05-26] MEDS: HEPARIN SODIUM 25000 UNITS/D5W 250 ML IV PRN (16:25)
[2016-05-26] MEDS: CASPOFUNGIN ACETATE 50 MG in SODIUM CHLORIDE 0.9% 250 ML IV SCH (21:08)
[2016-05-27] VITALS (9 sets, daily range): BP systolic 95–113; BP diastolic 48–68
[2016-05-27] MEDS: DAPTOMYCIN 350 MG in SODIUM CHLORIDE 0.9% 50 ML IV SCH (00:11)
[2016-05-27] MEDS: VANCOMYCIN HCL 125 MG/2.5 ML SOLUTION ORAL.SYG PO SCH ×5 (00:12→23:25)
[2016-05-27] MEDS: INSULIN ASPART 100 UNITS/ML SQ PRN ×4 (00:25→18:32)
[2016-05-27] MEDS: AMPICILLIN SODIUM/SULBACTAM NA 3 GM in SODIUM CHLORIDE 0.9% 100 ML IV SCH ×3 (02:53→18:29)
[2016-05-27] MEDS: OxyCODONE HCL/ACETAMINOPHEN 5-325 MG TABLET PO PRN ×2 (04:05→20:05)
[2016-05-27 05:16] LABS: ALBUMIN 0.9 g/dL (3.4-5.0); BILIRUBIN,TOTAL 1.4 mg/dL (0.1-1.0); CALCIUM, TOTAL 7.6 mg/dL (8.8-10.5); CREATININE 3.29 mg/dL (0.60-1.30); MAGNESIUM 2.3 mg/dL (1.80-2.40); PHOSPHORUS 3.8 mg/dL (2.5-4.9); POTASSIUM 3.2 mmol/L (3.5-5.1); TOTAL PROTEIN, SERUM 6.6 g/dL (6.4-8.2)
[2016-05-27 05:43] LABS: HEMATOCRIT 25.9 % (41-53); HEMOGLOBIN 8.5 g/dL (13.5-17.5); MEAN CORPUSCULAR HEMOGLOBIN 27.5 pg (26.0-34.0); MEAN CORPUSCULAR VOLUME 83 fL (80-100); PLATELET COUNT (AUTO) 182 K/uL (150-450); RED CELL DISTRIBUTION WIDTH 14.3 % (11.5-14.5); WHITE BLOOD COUNT (AUTO) 20.8 K/uL (4.5-11.0)
[2016-05-27 07:50] LABS: ABG BASE EXCESS 0.3 mmol/L (-2.0-3.0); ABG HCO3 25.2 mmol/L (22.0-26.0); ABG OXYHEMOGLOBIN 97.8 % (94.0-100.0); ABG PCO2 32 mmHg (35-45); TEMPERATURE, FAHRENHEIT, BG 98.6 FAHREN (96.0-98.6)
[2016-05-27 07:54] LABS: ALLEN TEST, BLOOD GAS Positive
[2016-05-27 08:04] LABS: BAND NEUTROPHILS % (MANUAL) 20 % (1-5); LYMPHOCYTES % (MANUAL) 4 % (22-44); RBC MORPHOLOGY COMMENT NORMAL RBC MORPH; TOTAL CELLS COUNTED 100
[2016-05-27] MEDS: ASPIRIN 81 MG CHEWABLE TABLET PO SCH (08:39)
[2016-05-27] MEDS: DOCUSATE SODIUM 100 MG CAPSULE PO SCH ×2 (08:40→20:05)
[2016-05-27] MEDS: CARVEDILOL 6.25 MG TABLET PO SCH ×2 (08:40→20:04)
[2016-05-27] MEDS: MULTIVITAMINS WITH MINERALS, THERAPEUTIC TABLET PO SCH (08:48)
[2016-05-27] MEDS: POTASSIUM CHL 10 MEQ/WATER 50 ML IV SCH ×2 (08:48→09:33)
[2016-05-27] MEDS: MINERAL OIL/PETROLATUM 120 GM CREAM TP SCH (08:49)
[2016-05-27] MEDS: PANTOPRAZOLE SODIUM 40 MG/VIAL IVP SCH (08:49)
[2016-05-27] MEDS ORDERED: MEBROFENIN TC99M/MCL ISOTOPE 1 EA INJ INJ ONE (09:45)
[2016-05-27 11:10] LABS: ALBUMIN/GLOBULIN RAITO (PEP) 0.4 (0.7-1.7); ALPHA-1 GLOBULINS(PEP) 0.4 g/dL (0.0-0.4); ALPHA-2 GLOBULINS (PEP) 0.7 g/dL (0.4-1.0); BETA (PEP) 0.7 g/dL (0.7-1.3); GAMMA GLOBULINS (PEP) 2.5 g/dL (0.4-1.8); GLOBULIN TOTAL (PEP) 4.3 g/dL (2.2-3.9); M-SPIKE (PEP) Not Observed g/dL (Not Observed)
[2016-05-27 12:34] LABS: CALCIUM, TOTAL 7.6 mg/dL (8.8-10.5); CREATININE 3.3 mg/dL (0.60-1.30); POTASSIUM 3.4 mmol/L (3.5-5.1)
[2016-05-27] MEDS: LORazepam 2 MG/ML VIAL IVP PRN (14:04)
[2016-05-27 15:19] LABS: ABG A-A DIFF O2 99.4 mmHg (10-20.0); ABG BASE EXCESS 0.9 mmol/L (-2.0-3.0); ABG HCO3 25.4 mmol/L (22.0-26.0); ABG OXYHEMOGLOBIN 93.1 % (94.0-100.0); ABG PCO2 35 mmHg (35-45); ABG PH 7.465 (7.35-7.450); TEMPERATURE, FAHRENHEIT, BG 98.6 FAHREN (96.0-98.6)
[2016-05-27 15:20] LABS: ALLEN TEST, BLOOD GAS Positive
[2016-05-27 17:33] LABS: GLUCOSE COMMENT 1 Received Meds; GLUCOSE,POINT OF CARE 282 MG/DL (70-110)
[2016-05-27 17:33] LABS: GLUCOSE,POINT OF CARE 212 MG/DL (70-110)
[2016-05-27 17:33] LABS: GLUCOSE COMMENT 1 Received Meds; GLUCOSE,POINT OF CARE 224 MG/DL (70-110)
[2016-05-27] MEDS: HEPARIN SODIUM 25000 UNITS/D5W 250 ML IV PRN (18:28)
[2016-05-27] MEDS: INSULIN DETEMIR 100 UNITS/ML SQ SCH (20:12)
[2016-05-27] MEDS: CASPOFUNGIN ACETATE 50 MG in SODIUM CHLORIDE 0.9% 250 ML IV SCH (23:25)
[2016-05-28] VITALS: BP 111/58
[2016-05-28] MEDS: INSULIN ASPART 100 UNITS/ML SQ PRN ×4 (00:04→18:17)
[2016-05-28] MEDS ORDERED: SODIUM CHLORIDE 0.9% 250 ML IV ONE (00:08)
[2016-05-28 00:17] LABS: GLUCOSE COMMENT 1 Received Meds; GLUCOSE,POINT OF CARE 174 MG/DL (70-110)
[2016-05-28 00:17] LABS: GLUCOSE COMMENT 1 Received Meds; GLUCOSE,POINT OF CARE 273 MG/DL (70-110)
[2016-05-28 00:17] LABS: GLUCOSE COMMENT 1 Received Meds; GLUCOSE,POINT OF CARE 264 MG/DL (70-110)
[2016-05-28 00:17] LABS: GLUCOSE COMMENT 1 Received Meds; GLUCOSE,POINT OF CARE 199 MG/DL (70-110)
[2016-05-28 00:17] LABS: GLUCOSE COMMENT 1 Received Meds; GLUCOSE,POINT OF CARE 260 MG/DL (70-110)
[2016-05-28 00:18] LABS: GLUCOSE COMMENT 1 Received Meds; GLUCOSE,POINT OF CARE 221 MG/DL (70-110)
[2016-05-28 00:22] LABS: GLUCOSE COMMENT 1 Received Meds; GLUCOSE,POINT OF CARE 270 MG/DL (70-110)
[2016-05-28 00:22] LABS: GLUCOSE COMMENT 1 Received Meds; GLUCOSE,POINT OF CARE 195 MG/DL (70-110)
[2016-05-28 00:22] LABS: GLUCOSE,POINT OF CARE 179 MG/DL (70-110)
[2016-05-28] MEDS: AMPICILLIN SODIUM/SULBACTAM NA 3 GM in SODIUM CHLORIDE 0.9% 100 ML IV SCH ×3 (02:08→18:17)
[2016-05-28] MEDS: LORazepam 2 MG/ML VIAL IVP PRN ×3 (03:26→15:05)
[2016-05-28 04:00] VITALS: BP 114/45
[2016-05-28 05:23] LABS: EOSINOPHILS % (AUTO) 0.1 % (1.0-6.0); HEMATOCRIT 25.5 % (41-53); HEMOGLOBIN 8.3 g/dL (13.5-17.5); LYMPHOCYTES # (AUTO) 1.2 K/uL (1.0-4.8); LYMPHOCYTES % (AUTO) 6.3 % (22.0-44.0); MEAN CORPUSCULAR HEMOGLOBIN 27.3 pg (26.0-34.0); MEAN CORPUSCULAR HGB CONC 32.7 G/dL (31.0-37.0); MEAN CORPUSCULAR VOLUME 84 fL (80-100); MONOCYTES # (AUTO) 0.8 K/uL (0.1-1.0); MONOCYTES % (AUTO) 3.8 % (2.0-9.0); NEUTROPHILS # (AUTO) 17.9 K/uL (1.8-7.7); PLATELET COUNT (AUTO) 188 K/uL (150-450); RED BLOOD CELL COUNT(AUTO) 3.05 MIL/uL (4.50-5.90); RED CELL DISTRIBUTION WIDTH 14.8 % (11.5-14.5); WHITE BLOOD COUNT (AUTO) 19.9 K/uL (4.5-11.0)
[2016-05-28 05:29] LABS: CALCIUM, TOTAL 7.8 mg/dL (8.8-10.5); CREATININE 2.98 mg/dL (0.60-1.30); MAGNESIUM 2.2 mg/dL (1.80-2.40); PHOSPHORUS 3.6 mg/dL (2.5-4.9); POTASSIUM 3.1 mmol/L (3.5-5.1)
[2016-05-28 06:01] LABS: NEUTROPHILS % (AUTO) 89.8 % (40.0-70.0)
[2016-05-28] MEDS: VANCOMYCIN HCL 125 MG/2.5 ML SOLUTION ORAL.SYG PO SCH ×4 (06:37→23:24)
[2016-05-28] MEDS: POTASSIUM CHL 10 MEQ/WATER 50 ML IV SCH ×2 (06:37→07:41)
[2016-05-28 06:46] LABS: PROCALCITONIN (PCT) 3.07 ng/mL (<0.50)
[2016-05-28] MEDS: OxyCODONE HCL/ACETAMINOPHEN 5-325 MG TABLET PO PRN ×3 (07:42→21:21)
[2016-05-28] MEDS: ASPIRIN 81 MG CHEWABLE TABLET PO SCH (07:57)
[2016-05-28] MEDS: CARVEDILOL 6.25 MG TABLET PO SCH ×2 (07:57→21:07)
[2016-05-28] MEDS: DOCUSATE SODIUM 100 MG CAPSULE PO SCH ×2 (07:57→21:07)
[2016-05-28 08:00] VITALS: BP 119/62
[2016-05-28] MEDS: PANTOPRAZOLE SODIUM 40 MG/VIAL IVP SCH (08:03)
[2016-05-28] MEDS: MULTIVITAMINS WITH MINERALS, THERAPEUTIC TABLET PO SCH (08:03)
[2016-05-28] MEDS: MINERAL OIL/PETROLATUM 120 GM CREAM TP SCH (08:04)
[2016-05-28 08:37] LABS: GLUCOSE COMMENT 1 Received Meds; GLUCOSE,POINT OF CARE 191 MG/DL (70-110)
[2016-05-28 08:37] LABS: GLUCOSE COMMENT 1 Received Meds; GLUCOSE,POINT OF CARE 176 MG/DL (70-110)
[2016-05-28 10:47] LABS: ALPHA-1 URINE (ELP) 1.6 %; ALPHA-2 URINE(ELP) 3.8 %; BETA URINE(ELP) 16.1 %; GAMMA URINE(ELP) 72.5 %; TOTAL PROTEIN URINE 51.1 mg/dL (Not Estab.); URINE M-SPIKE %(ELP) RANDOM 46.9 % (Not Observed)
[2016-05-28 12:00] VITALS: BP 108/62
[2016-05-28 16:00] VITALS: BP 124/75
[2016-05-28 20:00] VITALS: BP 117/68
[2016-05-28] MEDS: INSULIN DETEMIR 100 UNITS/ML SQ SCH (21:17)
[2016-05-28] MEDS: CASPOFUNGIN ACETATE 50 MG in SODIUM CHLORIDE 0.9% 250 ML IV SCH (21:18)
[2016-05-28] MEDS: DAPTOMYCIN 350 MG in SODIUM CHLORIDE 0.9% 50 ML IV SCH (23:24)
[2016-05-29] VITALS (12 sets, daily range): BP systolic 106–136; BP diastolic 55–73
[2016-05-29] MEDS: LORazepam 2 MG/ML VIAL IVP PRN ×4 (00:06→22:06)
[2016-05-29] MEDS: AMPICILLIN SODIUM/SULBACTAM NA 3 GM in SODIUM CHLORIDE 0.9% 100 ML IV SCH ×3 (02:54→17:20)
[2016-05-29] MEDS ORDERED: SODIUM CHLORIDE 0.9% 250 ML IV ONE (04:45)
[2016-05-29 05:04] LABS: BASOPHILS # (AUTO) 0.02 K/uL (0.00-0.20); BASOPHILS % (AUTO) 0.1 % (0.0-2.0); EOSINOPHILS # (AUTO) 0.01 K/uL (0.00-0.70); EOSINOPHILS % (AUTO) 0.08 % (1.0-6.0); HEMATOCRIT 26.1 % (41-53); HEMOGLOBIN 8.6 g/dL (13.5-17.5); LYMPHOCYTES # (AUTO) 1.4 K/uL (1.0-4.8); LYMPHOCYTES % (AUTO) 7.7 % (22.0-44.0); MEAN CORPUSCULAR HEMOGLOBIN 27.7 pg (26.0-34.0); MEAN CORPUSCULAR VOLUME 84 fL (80-100); MONOCYTES # (AUTO) 0.8 K/uL (0.1-1.0); MONOCYTES % (AUTO) 4.8 % (2.0-9.0); NEUTROPHILS # (AUTO) 15.3 K/uL (1.8-7.7); PLATELET COUNT (AUTO) 184 K/uL (150-450); RED BLOOD CELL COUNT(AUTO) 3.11 MIL/uL (4.50-5.90); RED CELL DISTRIBUTION WIDTH 15.1 % (11.5-14.5); WHITE BLOOD COUNT (AUTO) 17.5 K/uL (4.5-11.0)
[2016-05-29 05:20] LABS: NEUTROPHILS % (AUTO) 87.4 % (40.0-70.0)
[2016-05-29 05:22] LABS: CALCIUM, TOTAL 8.1 mg/dL (8.8-10.5); CREATININE 2.58 mg/dL (0.60-1.30)
[2016-05-29] MEDS: VANCOMYCIN HCL 125 MG/2.5 ML SOLUTION ORAL.SYG PO SCH ×4 (06:31→23:08)
[2016-05-29] MEDS: PANTOPRAZOLE SODIUM 40 MG/VIAL IVP SCH (08:22)
[2016-05-29] MEDS: MULTIVITAMINS WITH MINERALS, THERAPEUTIC TABLET PO SCH (08:23)
[2016-05-29] MEDS: OxyCODONE HCL/ACETAMINOPHEN 5-325 MG TABLET PO PRN ×4 (08:23→22:06)
[2016-05-29] MEDS: CARVEDILOL 6.25 MG TABLET PO SCH ×2 (08:23→21:46)
[2016-05-29] MEDS: ASPIRIN 81 MG CHEWABLE TABLET PO SCH (08:23)
[2016-05-29] MEDS: HEPARIN SODIUM,PORCINE 5,000 UNITS/ML VIAL IVP PRN (08:24)
[2016-05-29] MEDS: MINERAL OIL/PETROLATUM 120 GM CREAM TP SCH (09:00)
[2016-05-29] MEDS: DOCUSATE SODIUM 100 MG CAPSULE PO SCH ×3 (09:00→21:46)
[2016-05-29] MEDS: INSULIN ASPART 100 UNITS/ML SQ PRN ×3 (12:55→21:48)
[2016-05-29] MEDS ORDERED: POTASSIUM CHLORIDE 10% 40 MEQ/30 ML LIQUID UDCUP GT ONE (14:00)
[2016-05-29 18:45] LABS: CREATININE 2.46 mg/dL (0.60-1.30); POTASSIUM 3.8 mmol/L (3.5-5.1)
[2016-05-29] MEDS: INSULIN DETEMIR 100 UNITS/ML SQ SCH (21:48)
[2016-05-29] MEDS: CASPOFUNGIN ACETATE 50 MG in SODIUM CHLORIDE 0.9% 250 ML IV SCH (23:07)
[2016-05-30] VITALS (10 sets, daily range): BP systolic 107–125; BP diastolic 57–83
[2016-05-30] MEDS: AMPICILLIN SODIUM/SULBACTAM NA 3 GM in SODIUM CHLORIDE 0.9% 100 ML IV SCH ×3 (01:39→17:53)
[2016-05-30] MEDS: OxyCODONE HCL/ACETAMINOPHEN 5-325 MG TABLET PO PRN ×5 (03:37→21:32)
[2016-05-30 05:26] LABS: BASOPHILS # (AUTO) 0.01 K/uL (0.00-0.20); BASOPHILS % (AUTO) 0.1 % (0.0-2.0); EOSINOPHILS # (AUTO) 0.02 K/uL (0.00-0.70); EOSINOPHILS % (AUTO) 0.11 % (1.0-6.0); HEMATOCRIT 25.3 % (41-53); HEMOGLOBIN 8.5 g/dL (13.5-17.5); LYMPHOCYTES # (AUTO) 1.3 K/uL (1.0-4.8); LYMPHOCYTES % (AUTO) 7.9 % (22.0-44.0); MEAN CORPUSCULAR HGB CONC 33.5 G/dL (31.0-37.0); MEAN CORPUSCULAR VOLUME 84 fL (80-100); MONOCYTES # (AUTO) 0.6 K/uL (0.1-1.0); NEUTROPHILS # (AUTO) 14.1 K/uL (1.8-7.7); PLATELET COUNT (AUTO) 220 K/uL (150-450); RED BLOOD CELL COUNT(AUTO) 3.02 MIL/uL (4.50-5.90); RED CELL DISTRIBUTION WIDTH 14.5 % (11.5-14.5)
[2016-05-30 05:31] LABS: BILIRUBIN,TOTAL 0.8 mg/dL (0.1-1.0); CALCIUM, TOTAL 8.1 mg/dL (8.8-10.5); CREATININE 2.22 mg/dL (0.60-1.30); MAGNESIUM 2.2 mg/dL (1.80-2.40); POTASSIUM 3.4 mmol/L (3.5-5.1); TOTAL PROTEIN, SERUM 7.3 g/dL (6.4-8.2)
[2016-05-30] MEDS ORDERED: SODIUM CHLORIDE 0.9% 250 ML IV ONE ×2 (06:10→20:52)
[2016-05-30] MEDS: VANCOMYCIN HCL 125 MG/2.5 ML SOLUTION ORAL.SYG PO SCH ×3 (06:12→17:53)
[2016-05-30] MEDS: INSULIN ASPART 100 UNITS/ML SQ PRN ×3 (06:14→17:55)
[2016-05-30] MEDS ORDERED: POTASSIUM CHLORIDE 10% 40 MEQ/30 ML LIQUID UDCUP PO ONE (07:00)
[2016-05-30] MEDS: MULTIVITAMINS WITH MINERALS, THERAPEUTIC TABLET PO SCH (08:10)
[2016-05-30] MEDS: PANTOPRAZOLE SODIUM 40 MG/VIAL IVP SCH (08:10)
[2016-05-30] MEDS: MINERAL OIL/PETROLATUM 120 GM CREAM TP SCH (08:11)
[2016-05-30] MEDS: DOCUSATE SODIUM 100 MG CAPSULE PO SCH ×2 (08:11→21:00)
[2016-05-30] MEDS: CARVEDILOL 6.25 MG TABLET PO SCH ×2 (08:11→22:54)
[2016-05-30] MEDS: ASPIRIN 81 MG CHEWABLE TABLET PO SCH (08:11)
[2016-05-30] MEDS: LORazepam 2 MG/ML VIAL IVP PRN (09:20)
[2016-05-30 09:45] LABS: ABG A-A DIFF O2 33.5 mmHg (10-20.0); ABG BASE EXCESS 1.5 mmol/L (-2.0-3.0); ABG HCO3 26.3 mmol/L (22.0-26.0); ABG OXYHEMOGLOBIN 98.3 % (94.0-100.0); ABG PCO2 30 mmHg (35-45); ABG PH 7.523 (7.35-7.450); TEMPERATURE, FAHRENHEIT, BG 98.6 FAHREN (96.0-98.6)
[2016-05-30 09:46] LABS: ALLEN TEST, BLOOD GAS POSITIVE
[2016-05-30] MEDS: HEPARIN SODIUM 25000 UNITS/D5W 250 ML IV PRN (12:34)
[2016-05-30 14:21] LABS: GLUCOSE COMMENT 1 Received Meds; GLUCOSE,POINT OF CARE 143 MG/DL (70-110)
[2016-05-30 14:22] LABS: GLUCOSE COMMENT 1 Received Meds; GLUCOSE,POINT OF CARE 161 MG/DL (70-110)
[2016-05-30 15:52] LABS: GLUCOSE,POINT OF CARE 74 MG/DL (70-110)
[2016-05-30 15:52] LABS: GLUCOSE COMMENT 1 Received Meds; GLUCOSE,POINT OF CARE 115 MG/DL (70-110)
[2016-05-30 16:31] LABS: GLUCOSE,POINT OF CARE 255 MG/DL (70-110)
[2016-05-30] MEDS: INSULIN DETEMIR 100 UNITS/ML SQ SCH (21:34)
[2016-05-30] MEDS: DAPTOMYCIN 350 MG in SODIUM CHLORIDE 0.9% 50 ML IV SCH (22:54)
[2016-05-30] MEDS: CASPOFUNGIN ACETATE 50 MG in SODIUM CHLORIDE 0.9% 250 ML IV SCH (22:55)
[2016-05-31] VITALS (9 sets, daily range): BP systolic 85–122; BP diastolic 52–70
[2016-05-31] MEDS: LORazepam 2 MG/ML VIAL IVP PRN (02:13)
[2016-05-31] MEDS: VANCOMYCIN HCL 125 MG/2.5 ML SOLUTION ORAL.SYG PO SCH ×4 (02:14→17:46)
[2016-05-31] MEDS: INSULIN ASPART 100 UNITS/ML SQ PRN ×3 (02:27→11:49)
[2016-05-31] MEDS: AMPICILLIN SODIUM/SULBACTAM NA 3 GM in SODIUM CHLORIDE 0.9% 100 ML IV SCH ×3 (02:29→17:46)
[2016-05-31 05:36] LABS: BASOPHILS # (AUTO) 0.01 K/uL (0.00-0.20); EOSINOPHILS # (AUTO) 0.02 K/uL (0.00-0.70); EOSINOPHILS % (AUTO) 0.09 % (1.0-6.0); HEMATOCRIT 23.2 % (41-53); HEMOGLOBIN 7.9 g/dL (13.5-17.5); LYMPHOCYTES # (AUTO) 1.5 K/uL (1.0-4.8); LYMPHOCYTES % (AUTO) 8.3 % (22.0-44.0); MEAN CORPUSCULAR HEMOGLOBIN 28.5 pg (26.0-34.0); MEAN CORPUSCULAR VOLUME 84 fL (80-100); MONOCYTES # (AUTO) 0.6 K/uL (0.1-1.0); MONOCYTES % (AUTO) 3.3 % (2.0-9.0); NEUTROPHILS # (AUTO) 16.3 K/uL (1.8-7.7); PLATELET COUNT (AUTO) 214 K/uL (150-450); RED BLOOD CELL COUNT(AUTO) 2.77 MIL/uL (4.50-5.90); RED CELL DISTRIBUTION WIDTH 14.4 % (11.5-14.5); WHITE BLOOD COUNT (AUTO) 18.4 K/uL (4.5-11.0)
[2016-05-31 05:45] LABS: ALANINE AMINOTRANSFERASE 37 U/L (12-78); ANION GAP 7 mmol/L (8-16); ASPARTATE AMINOTRANSFERASE 49 U/L (15-37); BILIRUBIN,TOTAL 0.7 mg/dL (0.1-1.0); CALCIUM, TOTAL 8.1 mg/dL (8.8-10.5); CARBON DIOXIDE 27 mmol/L (22-29); CHLORIDE 114 mmol/L (98-107); CREATINE KINASE, TOTAL 33 U/L (39-308); CREATININE 2.18 mg/dL (0.60-1.30); GLOMERULAR FILTR. RATE CALC 38 mL/min (>60); NEUTROPHILS % (AUTO) 88.4 % (40.0-70.0); POTASSIUM 3.5 mmol/L (3.5-5.1); SODIUM SERUM 148 mmol/L (136-145); TOTAL PROTEIN, SERUM 7.2 g/dL (6.4-8.2); UREA NITROGEN, BLOOD 64 mg/dL (7-18)
[2016-05-31] MEDS: OxyCODONE HCL/ACETAMINOPHEN 5-325 MG TABLET PO PRN ×2 (06:21→13:42)
[2016-05-31 08:47] LABS: ABG A-A DIFF O2 33.7 mmHg (10-20.0); ABG BASE EXCESS 0.8 mmol/L (-2.0-3.0); ABG HCO3 25.4 mmol/L (22.0-26.0); ABG OXYHEMOGLOBIN 97.9 % (94.0-100.0); ABG PCO2 32 mmHg (35-45); ABG PH 7.495 (7.35-7.450)
[2016-05-31 08:48] LABS: ALLEN TEST, BLOOD GAS Positive
[2016-05-31] MEDS: ASPIRIN 81 MG CHEWABLE TABLET PO SCH (09:10)
[2016-05-31] MEDS: PANTOPRAZOLE SODIUM 40 MG/VIAL IVP SCH (09:10)
[2016-05-31] MEDS: CARVEDILOL 6.25 MG TABLET PO SCH ×2 (09:10→21:00)
[2016-05-31] MEDS: DOCUSATE SODIUM 100 MG CAPSULE PO SCH ×2 (09:10→21:42)
[2016-05-31] MEDS: MINERAL OIL/PETROLATUM 120 GM CREAM TP SCH (09:10)
[2016-05-31] MEDS: MULTIVITAMINS WITH MINERALS, THERAPEUTIC TABLET PO SCH (09:10)
[2016-05-31] MEDS: MORPHINE SULFATE 2 MG/ML SYRINGE IVP PRN ×3 (09:11→17:46)
[2016-05-31] MEDS ORDERED: RAPID SEQUENCE KIT [RSI] 1 EACH KIT ONE ×2 (11:24)
[2016-05-31] MEDS ORDERED: POTASSIUM CHLORIDE 10% 40 MEQ/30 ML LIQUID UDCUP PO ONE (18:00)
[2016-05-31] MEDS: INSULIN DETEMIR 100 UNITS/ML SQ SCH (21:00)
[2016-05-31] MEDS: CASPOFUNGIN ACETATE 50 MG in SODIUM CHLORIDE 0.9% 250 ML IV SCH (21:41)
[2016-05-31] MEDS: DEXTROSE 50%-WATER 25 GM/50 ML SYRINGE IVP PRN (21:42)
[2016-06-01] VITALS (8 sets, daily range): BP systolic 80–125; BP diastolic 9–64
[2016-06-01] MEDS: VANCOMYCIN HCL 125 MG/2.5 ML SOLUTION ORAL.SYG PO SCH ×4 (00:01→17:57)
[2016-06-01] MEDS: INSULIN ASPART 100 UNITS/ML SQ PRN ×4 (00:11→17:58)
[2016-06-01] MEDS: AMPICILLIN SODIUM/SULBACTAM NA 3 GM in SODIUM CHLORIDE 0.9% 100 ML IV SCH ×2 (02:11→09:44)
[2016-06-01] MEDS: HEPARIN SODIUM 25000 UNITS/D5W 250 ML IV PRN (02:12)
[2016-06-01 05:23] LABS: HEMATOCRIT 21.1 % (41-53); HEMOGLOBIN 7.1 g/dL (13.5-17.5); MEAN CORPUSCULAR HGB CONC 33.9 G/dL (31.0-37.0); MEAN CORPUSCULAR VOLUME 86 fL (80-100); PLATELET COUNT (AUTO) 235 K/uL (150-450); RED BLOOD CELL COUNT(AUTO) 2.47 MIL/uL (4.50-5.90); RED CELL DISTRIBUTION WIDTH 16.2 % (11.5-14.5)
[2016-06-01 05:31] LABS: WHITE BLOOD COUNT (AUTO) 31.7 K/uL (4.5-11.0)
[2016-06-01 05:54] LABS: CALCIUM, TOTAL 7.9 mg/dL (8.8-10.5); CREATININE 2.88 mg/dL (0.60-1.30); POTASSIUM 4.6 mmol/L (3.5-5.1)
[2016-06-01 07:21] LABS: ABG A-A DIFF O2 34.8 mmHg (10-20.0); ABG BASE EXCESS -2.6 mmol/L (-2.0-3.0); ABG HCO3 22.8 mmol/L (22.0-26.0); ABG OXYHEMOGLOBIN 98.6 % (94.0-100.0); ABG PCO2 27 mmHg (35-45); ABG PH 7.499 (7.35-7.450); TEMPERATURE, FAHRENHEIT, BG 99.7 FAHREN (96.0-98.6)
[2016-06-01 07:22] LABS: ALLEN TEST, BLOOD GAS Positive
[2016-06-01] MEDS: CARVEDILOL 6.25 MG TABLET PO SCH ×2 (07:38→21:00)
[2016-06-01 07:45] LABS: BAND NEUTROPHILS % (MANUAL) 37 % (1-5); LYMPHOCYTES % (MANUAL) 5 % (22-44); RBC MORPHOLOGY COMMENT NORMAL RBC MORPH; TOTAL CELLS COUNTED 100
[2016-06-01 08:04] LABS: APPEARANCE,URINE TURBID (CLEAR); GLUCOSE, URINE (UA) NEGATIVE (NEGATIVE); KETONES,URINE TRACE mg/dL (NEGATIVE); LEUKOCYTE ESTERASE ,URINE MODERATE (NEGATIVE); OCCULT BLOOD,URINE LARGE (NEGATIVE); PROTEIN,URINE SEE CONFIRM (NEGATIVE)
[2016-06-01 08:15] LABS: ADD UA MICROSCOPIC YES
[2016-06-01 08:18] LABS: SQUAMOUS EPITHELIAL CELL,UR Few /LPF (None Seen); SULFOSALICYLIC ACID,URINE 3+ (Negative)
[2016-06-01] MEDS ORDERED: ALBUMIN HUMAN 25%-12.5GM/50ML 50 ML IV ONE (08:30)
[2016-06-01] MEDS: DOCUSATE SODIUM 100 MG CAPSULE PO SCH ×2 (09:00→21:00)
[2016-06-01] MEDS: ASPIRIN 81 MG CHEWABLE TABLET PO SCH (09:43)
[2016-06-01] MEDS: MULTIVITAMINS WITH MINERALS, THERAPEUTIC TABLET PO SCH (09:43)
[2016-06-01] MEDS: PANTOPRAZOLE SODIUM 40 MG/VIAL IVP SCH (09:43)
[2016-06-01] MEDS: LORazepam 2 MG/ML VIAL IVP PRN ×2 (09:43→23:58)
[2016-06-01] MEDS: MORPHINE SULFATE 2 MG/ML SYRINGE IVP PRN ×2 (09:43→22:36)
[2016-06-01] MEDS: MINERAL OIL/PETROLATUM 120 GM CREAM TP SCH (09:44)
[2016-06-01] MEDS ORDERED: PHENYLEPHRINE 200 MG/D5%-WATER 250 ML IV PRN (13:26)
[2016-06-01] MEDS: ALBUMIN HUMAN 25%-25GM/100ML 100 ML IV SCH ×2 (14:54→21:44)
[2016-06-01] MEDS: CEFEPIME HCL 2 GM in DEXTROSE 5%-WATER 50 ML IV SCH (17:57)
[2016-06-01] MEDS: MetroNIDAZOLE 500 MG/NACL 100 ML IV SCH (17:57)
[2016-06-01] MEDS: INSULIN DETEMIR 100 UNITS/ML SQ SCH (21:43)
[2016-06-01] MEDS: LEVOFLOXACIN 750 MG/D5% WATER 150 ML IV SCH (21:43)
[2016-06-01] MEDS ORDERED: CASPOFUNGIN ACETATE 50 MG in SODIUM CHLORIDE 0.9% 250 ML IV SCH (22:00)
[2016-06-01] MEDS ORDERED: PIPERACILLIN/TAZO 3.375 GM/D5W 50 ML IV SCH (22:00)
[2016-06-01] MEDS: DAPTOMYCIN 350 MG in SODIUM CHLORIDE 0.9% 50 ML IV SCH (22:58)
[2016-06-02] VITALS (11 sets, daily range): BP systolic 94–117; BP diastolic 55–77
[2016-06-02] MEDS: INSULIN ASPART 100 UNITS/ML SQ PRN ×2 (00:28→06:16)
[2016-06-02] MEDS: VANCOMYCIN HCL 125 MG/2.5 ML SOLUTION ORAL.SYG PO SCH ×4 (00:28→17:02)
[2016-06-02] MEDS: MetroNIDAZOLE 500 MG/NACL 100 ML IV SCH ×3 (02:13→17:03)
[2016-06-02] MEDS: MORPHINE SULFATE 2 MG/ML SYRINGE IVP PRN ×4 (03:19→22:51)
[2016-06-02] MEDS ORDERED: SODIUM CHLORIDE 0.9% 250 ML IV ONE ×2 (03:20→22:46)
[2016-06-02] MEDS: ALBUMIN HUMAN 25%-25GM/100ML 100 ML IV SCH (06:14)
[2016-06-02 06:15] LABS: BASOPHILS # (AUTO) 0.01 K/uL (0.00-0.20); BASOPHILS % (AUTO) 0.1 % (0.0-2.0); EOSINOPHILS % (AUTO) 0 % (1.0-6.0); HEMATOCRIT 21.3 % (41-53); HEMOGLOBIN 7.1 g/dL (13.5-17.5); LYMPHOCYTES # (AUTO) 1.2 K/uL (1.0-4.8); LYMPHOCYTES % (AUTO) 6.3 % (22.0-44.0); MEAN CORPUSCULAR HEMOGLOBIN 28.2 pg (26.0-34.0); MEAN CORPUSCULAR HGB CONC 33.2 G/dL (31.0-37.0); MEAN CORPUSCULAR VOLUME 85 fL (80-100); MONOCYTES # (AUTO) 0.8 K/uL (0.1-1.0); MONOCYTES % (AUTO) 4.3 % (2.0-9.0); NEUTROPHILS # (AUTO) 16.4 K/uL (1.8-7.7); PLATELET COUNT (AUTO) 151 K/uL (150-450); WHITE BLOOD COUNT (AUTO) 18.4 K/uL (4.5-11.0)
[2016-06-02 06:27] LABS: CREATININE 3.12 mg/dL (0.60-1.30); PHOSPHORUS 5.4 mg/dL (2.5-4.9); POTASSIUM 4.3 mmol/L (3.5-5.1)
[2016-06-02] MEDS: HEPARIN SODIUM,PORCINE 5,000 UNITS/ML VIAL IVP PRN ×2 (06:30→13:42)
[2016-06-02 06:45] LABS: NEUTROPHILS % (AUTO) 89.4 % (40.0-70.0)
[2016-06-02] MEDS: PANTOPRAZOLE SODIUM 40 MG/VIAL IVP SCH (08:58)
[2016-06-02] MEDS: ASPIRIN 81 MG CHEWABLE TABLET PO SCH (08:59)
[2016-06-02] MEDS: MULTIVITAMINS WITH MINERALS, THERAPEUTIC TABLET PO SCH (08:59)
[2016-06-02] MEDS: DOCUSATE SODIUM 100 MG CAPSULE PO SCH ×2 (09:00→21:00)
[2016-06-02] MEDS: CARVEDILOL 6.25 MG TABLET PO SCH ×2 (09:00→21:00)
[2016-06-02] MEDS: MINERAL OIL/PETROLATUM 120 GM CREAM TP SCH (10:13)
[2016-06-02] MEDS: FUROSEMIDE 40 MG/4 ML VIAL IVP SCH ×2 (10:13→21:14)
[2016-06-02] MEDS ORDERED: INSULIN ASPART 100 UNITS/ML SQ PRN (13:15)
[2016-06-02] MEDS ORDERED: INSULIN DETEMIR 100 UNITS/ML SQ SCH (13:15)
[2016-06-02] MEDS ORDERED: DEXTROSE 50%-WATER 25 GM/50 ML SYRINGE IVP PRN ×2 (13:15→16:30)
[2016-06-02 14:32] LABS: GLUCOSE COMMENT 1 Doctor Notified; GLUCOSE,POINT OF CARE 532 MG/DL (70-110)
[2016-06-02 14:36] LABS: GLUCOSE COMMENT 1 Doctor Notified; GLUCOSE,POINT OF CARE > 600 MG/DL (70-110)
[2016-06-02] MEDS ORDERED: DEXTROSE 5%-WATER 1,000 ML IV SCH (16:29)
[2016-06-02] MEDS ORDERED: INSULIN REGULAR, HUMAN 100 UNITS in SODIUM CHLORIDE 0.9% 99 ML IV PRN ×2 (16:29)
[2016-06-02 16:42] LABS: GLUCOSE COMMENT 1 Received Meds; GLUCOSE,POINT OF CARE 189 MG/DL (70-110)
[2016-06-02 16:42] LABS: GLUCOSE,POINT OF CARE 121 MG/DL (70-110)
[2016-06-02 16:42] LABS: GLUCOSE COMMENT 1 Received Meds; GLUCOSE,POINT OF CARE 204 MG/DL (70-110)
[2016-06-02] MEDS: SODIUM BICARBONATE 650 MG TABLET PO SCH ×2 (17:01→21:13)
[2016-06-02 17:32] LABS: GLUCOSE,POINT OF CARE 221 MG/DL (70-110)
[2016-06-02 17:32] LABS: GLUCOSE COMMENT 1 Received Meds; GLUCOSE,POINT OF CARE 149 MG/DL (70-110)
[2016-06-02 17:32] LABS: GLUCOSE COMMENT 1 Received Meds; GLUCOSE,POINT OF CARE 149 MG/DL (70-110)
[2016-06-02 17:32] LABS: GLUCOSE,POINT OF CARE 216 MG/DL (70-110)
[2016-06-02 17:32] LABS: GLUCOSE COMMENT 1 Received Meds; GLUCOSE,POINT OF CARE 202 MG/DL (70-110)
[2016-06-02 17:32] LABS: GLUCOSE,POINT OF CARE 164 MG/DL (70-110)
[2016-06-02 17:37] LABS: GLUCOSE,POINT OF CARE 70 MG/DL (70-110)
[2016-06-02 17:37] LABS: GLUCOSE COMMENT 1 Received Meds; GLUCOSE,POINT OF CARE 141 MG/DL (70-110)
[2016-06-02 17:37] LABS: GLUCOSE COMMENT 1 Juice/Food/D50 Given; GLUCOSE,POINT OF CARE 58 MG/DL (70-110)
[2016-06-02 17:37] LABS: GLUCOSE,POINT OF CARE 331 MG/DL (70-110)
[2016-06-02 17:37] LABS: GLUCOSE,POINT OF CARE 163 MG/DL (70-110)
[2016-06-02] MEDS: CEFEPIME HCL 2 GM in DEXTROSE 5%-WATER 50 ML IV SCH (18:00)
[2016-06-02] MEDS: LORazepam 2 MG/ML VIAL IVP PRN (18:16)
[2016-06-03] VITALS (20 sets, daily range): BP systolic 97–125; BP diastolic 43–75
[2016-06-03] MEDS: VANCOMYCIN HCL 125 MG/2.5 ML SOLUTION ORAL.SYG PO SCH ×4 (00:50→17:42)
[2016-06-03 01:02] LABS: GLUCOSE,POINT OF CARE 146 MG/DL (70-110)
[2016-06-03 01:02] LABS: GLUCOSE COMMENT 1 Received Meds; GLUCOSE,POINT OF CARE 56 MG/DL (70-110)
[2016-06-03 01:02] LABS: GLUCOSE COMMENT 1 Received Meds; GLUCOSE,POINT OF CARE 174 MG/DL (70-110)
[2016-06-03 01:02] LABS: GLUCOSE,POINT OF CARE 71 MG/DL (70-110)
[2016-06-03 01:02] LABS: GLUCOSE,POINT OF CARE 85 MG/DL (70-110)
[2016-06-03 01:46] LABS: GLUCOSE,POINT OF CARE 139 MG/DL (70-110)
[2016-06-03] MEDS: MetroNIDAZOLE 500 MG/NACL 100 ML IV SCH ×3 (03:24→17:40)
[2016-06-03 05:16] LABS: GLUCOSE,POINT OF CARE 115 MG/DL (70-110)
[2016-06-03 05:37] LABS: GLUCOSE,POINT OF CARE 141 MG/DL (70-110)
[2016-06-03 06:17] LABS: EOSINOPHILS # (AUTO) 0.02 K/uL (0.00-0.70); EOSINOPHILS % (AUTO) 0.17 % (1.0-6.0); LYMPHOCYTES # (AUTO) 1.4 K/uL (1.0-4.8); LYMPHOCYTES % (AUTO) 14.3 % (22.0-44.0); MEAN CORPUSCULAR HEMOGLOBIN 27.2 pg (26.0-34.0); MEAN CORPUSCULAR HGB CONC 32.2 G/dL (31.0-37.0); MEAN CORPUSCULAR VOLUME 84 fL (80-100); MONOCYTES # (AUTO) 0.4 K/uL (0.1-1.0); MONOCYTES % (AUTO) 3.9 % (2.0-9.0); NEUTROPHILS % (AUTO) 81.6 % (40.0-70.0); PLATELET COUNT (AUTO) 144 K/uL (150-450); RED BLOOD CELL COUNT(AUTO) 2.45 MIL/uL (4.50-5.90); RED CELL DISTRIBUTION WIDTH 15.7 % (11.5-14.5); WHITE BLOOD COUNT (AUTO) 9.8 K/uL (4.5-11.0)
[2016-06-03 06:33] LABS: ALBUMIN 1.6 g/dL (3.4-5.0); BILIRUBIN,TOTAL 1.1 mg/dL (0.1-1.0); CALCIUM, TOTAL 7.6 mg/dL (8.8-10.5); CREATININE 3.1 mg/dL (0.60-1.30); MAGNESIUM 2.1 mg/dL (1.80-2.40); POTASSIUM 3.5 mmol/L (3.5-5.1); TOTAL PROTEIN, SERUM 6.6 g/dL (6.4-8.2)
[2016-06-03 06:49] LABS: HEMATOCRIT 20.6 % (41-53); HEMOGLOBIN 6.6 g/dL (13.5-17.5)
[2016-06-03 06:50] LABS: RBC MORPHOLOGY COMMENT ABNORMAL RBC MORPH
[2016-06-03 07:32] LABS: GLUCOSE,POINT OF CARE 152 MG/DL (70-110)
[2016-06-03 08:27] LABS: ABG A-A DIFF O2 30.3 mmHg (10-20.0); ABG BASE EXCESS -1.4 mmol/L (-2.0-3.0); ABG HCO3 23.6 mmol/L (22.0-26.0); ABG OXYHEMOGLOBIN 97.7 % (94.0-100.0); ABG PCO2 31 mmHg (35-45); ABG PH 7.473 (7.35-7.450); TEMPERATURE, FAHRENHEIT, BG 98.6 FAHREN (96.0-98.6)
[2016-06-03 08:47] LABS: ALLEN TEST, BLOOD GAS Positive
[2016-06-03] MEDS: DOCUSATE SODIUM 100 MG CAPSULE PO SCH ×2 (09:00→21:00)
[2016-06-03] MEDS: FUROSEMIDE 40 MG/4 ML VIAL IVP SCH ×2 (09:24→21:20)
[2016-06-03] MEDS: ASPIRIN 81 MG CHEWABLE TABLET PO SCH (09:25)
[2016-06-03] MEDS: CARVEDILOL 6.25 MG TABLET PO SCH ×2 (09:25→21:20)
[2016-06-03] MEDS: PANTOPRAZOLE SODIUM 40 MG/VIAL IVP SCH (09:25)
[2016-06-03] MEDS: MULTIVITAMINS WITH MINERALS, THERAPEUTIC TABLET PO SCH (09:26)
[2016-06-03] MEDS: SODIUM BICARBONATE 650 MG TABLET PO SCH ×3 (09:26→21:20)
[2016-06-03] MEDS: MINERAL OIL/PETROLATUM 120 GM CREAM TP SCH (09:27)
[2016-06-03] MEDS ORDERED: SODIUM CHLORIDE 0.9% 250 ML IV ONE (11:32)
[2016-06-03 12:27] LABS: GLUCOSE,POINT OF CARE 228 MG/DL (70-110)
[2016-06-03 12:27] LABS: GLUCOSE COMMENT 1 Received Meds; GLUCOSE,POINT OF CARE 255 MG/DL (70-110)
[2016-06-03 12:33] LABS: GLUCOSE COMMENT 1 Received Meds; GLUCOSE,POINT OF CARE 217 MG/DL (70-110)
[2016-06-03 13:47] LABS: GLUCOSE COMMENT 1 Received Meds; GLUCOSE,POINT OF CARE 156 MG/DL (70-110)
[2016-06-03 13:47] LABS: GLUCOSE COMMENT 1 Received Meds; GLUCOSE,POINT OF CARE 298 MG/DL (70-110)
[2016-06-03 14:37] LABS: GLUCOSE,POINT OF CARE 108 MG/DL (70-110)
[2016-06-03 14:37] LABS: GLUCOSE,POINT OF CARE 145 MG/DL (70-110)
[2016-06-03 14:37] LABS: GLUCOSE COMMENT 1 Received Meds; GLUCOSE,POINT OF CARE 158 MG/DL (70-110)
[2016-06-03] MEDS ORDERED: DEXTROSE 50%-WATER 25 GM/50 ML SYRINGE IVP PRN (14:45)
[2016-06-03] MEDS: MORPHINE SULFATE 2 MG/ML SYRINGE IVP PRN (15:27)
[2016-06-03] MEDS: INSULIN REGULAR, HUMAN 100 UNITS/ML SQ PRN (17:43)
[2016-06-03] MEDS: CEFEPIME HCL 2 GM in DEXTROSE 5%-WATER 50 ML IV SCH (18:56)
[2016-06-03 20:26] LABS: GLUCOSE COMMENT 1 Received Meds; GLUCOSE,POINT OF CARE 199 MG/DL (70-110)
[2016-06-03] MEDS: LEVOFLOXACIN 750 MG/D5% WATER 150 ML IV SCH (21:21)
[2016-06-03] MEDS: OxyCODONE HCL/ACETAMINOPHEN 5-325 MG TABLET PO PRN (22:15)
[2016-06-03] MEDS: FLUCONAZOLE 100 MG/NACL ISOOSM 50 ML IV SCH (23:28)
[2016-06-04] VITALS (10 sets, daily range): BP systolic 104–122; BP diastolic 65–76
[2016-06-04] MEDS: INSULIN REGULAR, HUMAN 100 UNITS/ML SQ PRN ×4 (00:45→17:54)
[2016-06-04] MEDS: LORazepam 2 MG/ML VIAL IVP PRN ×2 (01:05→14:34)
[2016-06-04 05:23] LABS: CALCIUM, TOTAL 7.3 mg/dL (8.8-10.5); CREATININE 3.03 mg/dL (0.60-1.30); POTASSIUM 3.3 mmol/L (3.5-5.1)
[2016-06-04 06:08] LABS: BASOPHILS % (AUTO) 0.2 % (0.0-2.0); EOSINOPHILS % (AUTO) 0.4 % (1.0-6.0); HEMATOCRIT 29.5 % (41-53); HEMOGLOBIN 9.6 g/dL (13.5-17.5); LYMPHOCYTES % (AUTO) 13.3 % (22.0-44.0); MEAN CORPUSCULAR HEMOGLOBIN 26.7 pg (26.0-34.0); MEAN CORPUSCULAR HGB CONC 32.4 G/dL (31.0-37.0); MEAN CORPUSCULAR VOLUME 82 fL (80-100); MONOCYTES # (AUTO) 0.4 K/uL (0.1-1.0); MONOCYTES % (AUTO) 5.5 % (2.0-9.0); NEUTROPHILS # (AUTO) 5.8 K/uL (1.8-7.7); NEUTROPHILS % (AUTO) 80.6 % (40.0-70.0); PLATELET COUNT (AUTO) 111 K/uL (150-450); RED BLOOD CELL COUNT(AUTO) 3.59 MIL/uL (4.50-5.90); RED CELL DISTRIBUTION WIDTH 16.7 % (11.5-14.5); WHITE BLOOD COUNT (AUTO) 7.2 K/uL (4.5-11.0)
[2016-06-04 07:47] LABS: GLUCOSE COMMENT 1 Received Meds; GLUCOSE,POINT OF CARE 188 MG/DL (70-110)
[2016-06-04] MEDS: DOCUSATE SODIUM 100 MG CAPSULE PO SCH ×2 (09:00→21:42)
[2016-06-04] MEDS: FUROSEMIDE 40 MG/4 ML VIAL IVP SCH ×2 (09:01→21:41)
[2016-06-04] MEDS: PANTOPRAZOLE SODIUM 40 MG/VIAL IVP SCH (09:02)
[2016-06-04] MEDS: SODIUM BICARBONATE 650 MG TABLET PO SCH ×3 (09:02→21:42)
[2016-06-04] MEDS: ASPIRIN 81 MG CHEWABLE TABLET PO SCH (09:02)
[2016-06-04] MEDS: MORPHINE SULFATE 2 MG/ML SYRINGE IVP PRN ×2 (09:02→14:30)
[2016-06-04] MEDS: MINERAL OIL/PETROLATUM 120 GM CREAM TP SCH (09:02)
[2016-06-04] MEDS: MULTIVITAMINS WITH MINERALS, THERAPEUTIC TABLET PO SCH (09:03)
[2016-06-04 10:57] LABS: RBC MORPHOLOGY COMMENT NORMAL RBC MORPH
[2016-06-04 11:07] LABS: ABG A-A DIFF O2 36.6 mmHg (10-20.0); ABG BASE EXCESS 1.3 mmol/L (-2.0-3.0); ABG PCO2 32 mmHg (35-45); ABG PH 7.499 (7.35-7.450); ALLEN TEST, BLOOD GAS Positive; TEMPERATURE, FAHRENHEIT, BG 98.6 FAHREN (96.0-98.6)
[2016-06-04] MEDS: CARVEDILOL 6.25 MG TABLET PO SCH ×2 (11:21→21:42)
[2016-06-04 19:27] LABS: GLUCOSE COMMENT 1 Received Meds; GLUCOSE,POINT OF CARE 159 MG/DL (70-110)
[2016-06-04 19:27] LABS: GLUCOSE COMMENT 1 Received Meds; GLUCOSE,POINT OF CARE 167 MG/DL (70-110)
[2016-06-04] MEDS ORDERED: SODIUM CHLORIDE 0.9% 250 ML IV ONE (21:50)
[2016-06-04] MEDS: FLUCONAZOLE 100 MG/NACL ISOOSM 50 ML IV SCH (22:17)
[2016-06-05] VITALS (15 sets, daily range): BP systolic 119–134; BP diastolic 64–79
[2016-06-05] MEDS: LORazepam 2 MG/ML VIAL IVP PRN ×4 (01:52→23:27)
[2016-06-05] MEDS: MORPHINE SULFATE 2 MG/ML SYRINGE IVP PRN ×5 (01:52→23:50)
[2016-06-05] MEDS: INSULIN REGULAR, HUMAN 100 UNITS/ML SQ PRN ×3 (05:16→17:45)
[2016-06-05 06:00] LABS: BASOPHILS % (AUTO) 0.2 % (0.0-2.0); EOSINOPHILS % (AUTO) 0.2 % (1.0-6.0); HEMATOCRIT 28.6 % (41-53); HEMOGLOBIN 9.3 g/dL (13.5-17.5); LYMPHOCYTES % (AUTO) 18.8 % (22.0-44.0); MEAN CORPUSCULAR HEMOGLOBIN 26.7 pg (26.0-34.0); MEAN CORPUSCULAR HGB CONC 32.6 G/dL (31.0-37.0); MEAN CORPUSCULAR VOLUME 82 fL (80-100); MONOCYTES # (AUTO) 0.4 K/uL (0.1-1.0); MONOCYTES % (AUTO) 6.4 % (2.0-9.0); NEUTROPHILS # (AUTO) 4.1 K/uL (1.8-7.7); NEUTROPHILS % (AUTO) 74.4 % (40.0-70.0); PLATELET COUNT (AUTO) 111 K/uL (150-450); RED BLOOD CELL COUNT(AUTO) 3.49 MIL/uL (4.50-5.90); WHITE BLOOD COUNT (AUTO) 5.6 K/uL (4.5-11.0)
[2016-06-05 06:11] LABS: CALCIUM, TOTAL 6.9 mg/dL (8.8-10.5); CREATININE 2.64 mg/dL (0.60-1.30)
[2016-06-05 06:47] LABS: GLUCOSE COMMENT 1 Received Meds; GLUCOSE,POINT OF CARE 166 MG/DL (70-110)
[2016-06-05 06:47] LABS: GLUCOSE COMMENT 1 Received Meds; GLUCOSE,POINT OF CARE 147 MG/DL (70-110)
[2016-06-05 06:47] LABS: GLUCOSE,POINT OF CARE 139 MG/DL (70-110)
[2016-06-05 07:46] LABS: ABG A-A DIFF O2 29.8 mmHg (10-20.0); ABG BASE EXCESS 2.5 mmol/L (-2.0-3.0); ABG HCO3 27.4 mmol/L (22.0-26.0); ABG OXYHEMOGLOBIN 97.8 % (94.0-100.0); ABG PCO2 26 mmHg (35-45); ABG PH 7.585 (7.35-7.450); TEMPERATURE, FAHRENHEIT, BG 98.6 FAHREN (96.0-98.6)
[2016-06-05 07:54] LABS: POTASSIUM 2.8 mmol/L (3.5-5.1)
[2016-06-05 08:01] LABS: ALLEN TEST, BLOOD GAS Positive
[2016-06-05] MEDS: MULTIVITAMINS WITH MINERALS, THERAPEUTIC TABLET PO SCH (08:11)
[2016-06-05] MEDS: PANTOPRAZOLE SODIUM 40 MG/VIAL IVP SCH (08:11)
[2016-06-05] MEDS: CARVEDILOL 6.25 MG TABLET PO SCH ×2 (08:11→21:11)
[2016-06-05] MEDS: SODIUM BICARBONATE 650 MG TABLET PO SCH ×3 (08:11→21:11)
[2016-06-05] MEDS: DOCUSATE SODIUM 100 MG CAPSULE PO SCH ×2 (08:11→21:11)
[2016-06-05] MEDS: FUROSEMIDE 40 MG/4 ML VIAL IVP SCH ×2 (08:12→21:11)
[2016-06-05 08:41] LABS: RBC MORPHOLOGY COMMENT ABNORMAL RBC MORPH
[2016-06-05] MEDS ORDERED: POTASSIUM CHLORIDE 10% 40 MEQ/30 ML LIQUID UDCUP NG ONE (08:45)
[2016-06-05] MEDS: MINERAL OIL/PETROLATUM 120 GM CREAM TP SCH (10:16)
[2016-06-05 18:27] LABS: GLUCOSE COMMENT 1 Received Meds; GLUCOSE,POINT OF CARE 162 MG/DL (70-110)
[2016-06-05 18:27] LABS: GLUCOSE COMMENT 1 Received Meds; GLUCOSE,POINT OF CARE 155 MG/DL (70-110)
[2016-06-05] MEDS ORDERED: CefoTEtan DISOD 2 GM/DEXTROSE 50 ML IV SCH (21:00)
[2016-06-05] MEDS: FLUCONAZOLE 100 MG/NACL ISOOSM 50 ML IV SCH (23:50)
[2016-06-06] VITALS (7 sets, daily range): BP systolic 121–133; BP diastolic 70–78
[2016-06-06] MEDS ORDERED: SODIUM CHLORIDE 0.9% 250 ML IV ONE (04:49)
[2016-06-06] MEDS: INSULIN REGULAR, HUMAN 100 UNITS/ML SQ PRN ×2 (05:50→12:50)
[2016-06-06 08:07] LABS: GLUCOSE,POINT OF CARE 114 MG/DL (70-110)
[2016-06-06 08:07] LABS: GLUCOSE,POINT OF CARE 177 MG/DL (70-110)
[2016-06-06] MEDS: DOCUSATE SODIUM 100 MG CAPSULE PO SCH (09:00)
[2016-06-06] MEDS: SODIUM BICARBONATE 650 MG TABLET PO SCH ×2 (09:04→15:31)
[2016-06-06] MEDS: MULTIVITAMINS WITH MINERALS, THERAPEUTIC TABLET PO SCH (09:04)
[2016-06-06] MEDS: PANTOPRAZOLE SODIUM 40 MG/VIAL IVP SCH (09:05)
[2016-06-06] MEDS: FUROSEMIDE 40 MG/4 ML VIAL IVP SCH (09:05)
[2016-06-06] MEDS: CARVEDILOL 6.25 MG TABLET PO SCH (09:05)
[2016-06-06] MEDS: MINERAL OIL/PETROLATUM 120 GM CREAM TP SCH (09:06)
[2016-06-06] MEDS: OxyCODONE HCL/ACETAMINOPHEN 5-325 MG TABLET PO PRN (10:36)
[2016-06-06] MEDS ORDERED: POTASSIUM CHLORIDE 10% 40 MEQ/30 ML LIQUID UDCUP NG ONE (10:45)
[2016-06-06 20:32] LABS: GLUCOSE COMMENT 1 Received Meds; GLUCOSE,POINT OF CARE 159 MG/DL (70-110)
[2016-06-06] MEDS: LORazepam 2 MG/ML VIAL IVP PRN (23:58)
[2016-06-07] VITALS (7 sets, daily range): BP systolic 113–150; BP diastolic 63–95
[2016-06-07] MEDS ORDERED: FUROSEMIDE 40 MG/4 ML VIAL IVP SCH (09:00)
[2016-06-07] MEDS: LORazepam 2 MG/ML VIAL IVP PRN (13:06)
[2016-06-07] MEDS: MORPHINE SULFATE 4 MG/ML SYRINGE IVP PRN (13:07)
[2016-06-08] VITALS (7 sets, daily range): BP systolic 101–133; BP diastolic 59–94
[2016-06-08] MEDS: LORazepam 2 MG/ML VIAL IVP PRN ×3 (01:25→23:55)
[2016-06-08] MEDS: MORPHINE SULFATE 4 MG/ML SYRINGE IVP PRN ×2 (13:33→23:54)
[2016-06-09 04:07] VITALS: BP 129/83
[2016-06-09] MEDS: MORPHINE SULFATE 4 MG/ML SYRINGE IVP PRN ×2 (05:41→19:26)
[2016-06-09 07:43] VITALS: BP 114/78
[2016-06-09 12:00] VITALS: BP 122/62
[2016-06-09 15:20] VITALS: BP 125/81
[2016-06-09] MEDS: LORazepam 2 MG/ML VIAL IVP PRN (19:25)
[2016-06-09 19:36] VITALS: BP 115/63
[2016-06-09 23:09] VITALS: BP 118/79
[2016-06-10 05:06] VITALS: BP 126/77
[2016-06-10 07:42] VITALS: BP 108/80
[2016-06-10] MEDS ORDERED: LORazepam 1 MG TABLET PO PRN (10:00)
[2016-06-10] MEDS ORDERED: MORPHINE SULFATE 15 MG IR TABLET PO PRN (10:00)
[2016-06-10 11:50] VITALS: BP 122/79
[2016-06-10] MEDS: MORPHINE SULFATE 15 MG IR TABLET PO PRN (14:10)
[2016-06-10] MEDS: LORazepam 1 MG TABLET PO PRN (14:51)
[2016-06-10 15:20] VITALS: BP 120/78
[2016-06-10 19:17] VITALS: BP 124/78
[2016-06-10 23:15] VITALS: BP 127/87
[2016-06-11] MEDS: LORazepam 1 MG TABLET PO PRN (02:38)
[2016-06-11] MEDS: MORPHINE SULFATE 15 MG IR TABLET PO PRN (02:38)
[2016-06-11 04:00] VITALS: BP 134/86
[2016-06-11 07:58] VITALS: BP 122/79
[2016-06-11 12:22] VITALS: BP 125/81
[2016-06-11 15:50] VITALS: BP 124/79
[2016-06-11 19:18] VITALS: BP 118/75
[2016-06-11 23:00] VITALS: BP 120/80
[2016-06-12 03:06] VITALS: BP 125/81
[2016-06-12 07:16] VITALS: BP 119/72
[2016-06-12] MEDS: MORPHINE SULFATE 15 MG IR TABLET PO PRN (09:30)
[2016-06-12 12:22] VITALS: BP 122/85
[2016-06-12 15:30] VITALS: BP 125/93
[2016-06-12 19:58] VITALS: BP 123/87
[2016-06-12 23:41] VITALS: BP 129/77
[2016-06-13] MEDS: MORPHINE SULFATE 15 MG IR TABLET PO PRN ×2 (02:29→08:41)
[2016-06-13 04:00] VITALS: BP 129/89
[2016-06-13 07:23] VITALS: BP 123/90
[2016-06-13 11:37] VITALS: BP 122/82
[2016-06-13 15:11] VITALS: BP 120/78
[2016-06-13 19:20] VITALS: BP 117/71
[2016-06-13 23:15] VITALS: BP 114/81
[2016-06-14 05:31] VITALS: BP 126/82
[2016-06-14 07:15] VITALS: BP 127/82
[2016-06-14 11:05] VITALS: BP 121/75
== END 2016-06-14 14:00 | DRG 710 ==
LOC: EMS 19:38 → 6N 21:26 → ICU 05-18 13:10 → ICUN 05-18 22:28 → ICU 05-23 11:13 → 6N 06-06 22:32
PROVIDERS: ADMIT Internal Medicine; ATTEND Internal Medicine
PROC: 0DH67UZ Insertion of Feeding Device into Stomach, Via Natural or Artificial Opening (ICD-10-PCS; principal; 2016-05-19)
PROC: 02HV33Z Insertion of Infusion Device into Superior Vena Cava, Percutaneous Approach (ICD-10-PCS; 2016-05-19)
PROC: 0BH17EZ Insertion of Endotracheal Airway into Trachea, Via Natural or Artificial Opening (ICD-10-PCS; 2016-05-19)
PROC: 5A1955Z Respiratory Ventilation, Greater than 96 Consecutive Hours (ICD-10-PCS; 2016-05-19)
PROC: 30233N1 Transfusion of Nonautologous Red Blood Cells into Peripheral Vein, Percutaneous Approach (ICD-10-PCS; 2016-05-19)
PROC: 0W993ZZ Drainage of Right Pleural Cavity, Percutaneous Approach (ICD-10-PCS; 2016-05-19)
DX: A41.9 Sepsis, unspecified organism (principal); N17.0 Acute kidney failure with tubular necrosis; I21.3 ST elevation (STEMI) myocardial infarction of unspecified site; J96.00 Acute respiratory failure, unspecified whether with hypoxia or hypercapnia; R57.0 Cardiogenic shock; R65.21 Severe sepsis with septic shock; I13.0 Hypertensive heart and chronic kidney disease with heart failure and stage 1 through stage 4 chronic kidney disease, or unspecified chronic kidney disease; J15.6 Pneumonia due to other Gram-negative bacteria; L03.116 Cellulitis of left lower limb; I50.9 Heart failure, unspecified; E87.2 Acidosis; E87.0 Hyperosmolality and hypernatremia; I42.9 Cardiomyopathy, unspecified; E11.21 Type 2 diabetes mellitus with diabetic nephropathy; E11.621 Type 2 diabetes mellitus with foot ulcer; E88.09 Other disorders of plasma-protein metabolism, not elsewhere classified; L97.529 Non-pressure chronic ulcer of other part of left foot with unspecified severity; Z79.4 Long term (current) use of insulin; Z59.0 Homelessness; E11.65 Type 2 diabetes mellitus with hyperglycemia; E87.6 Hypokalemia; F10.10 Alcohol abuse, uncomplicated; F14.10 Cocaine abuse, uncomplicated; F12.10 Cannabis abuse, uncomplicated; F15.10 Other stimulant abuse, uncomplicated; I25.10 Atherosclerotic heart disease of native coronary artery without angina pectoris; K59.00 Constipation, unspecified; M86.9 Osteomyelitis, unspecified; N18.9 Chronic kidney disease, unspecified; E11.52 Type 2 diabetes mellitus with diabetic peripheral angiopathy with gangrene; I51.3 Intracardiac thrombosis, not elsewhere classified; I73.9 Peripheral vascular disease, unspecified; B96.4 Proteus (mirabilis) (morganii) as the cause of diseases classified elsewhere; B95.2 Enterococcus as the cause of diseases classified elsewhere; Z66 Do not resuscitate; N39.0 Urinary tract infection, site not specified; R62.7 Adult failure to thrive; Z68.20 Body mass index [BMI] 20.0-20.9, adult; Z51.5 Encounter for palliative care; L97.809 Non-pressure chronic ulcer of other part of unspecified lower leg with unspecified severity; E87.1 Hypo-osmolality and hyponatremia; E11.69 Type 2 diabetes mellitus with other specified complication; D64.9 Anemia, unspecified; E11.22 Type 2 diabetes mellitus with diabetic chronic kidney disease; F17.210 Nicotine dependence, cigarettes, uncomplicated; Z88.5 Allergy status to narcotic agent; Z89.439 Acquired absence of unspecified foot; Z95.5 Presence of coronary angioplasty implant and graft; Z95.1 Presence of aortocoronary bypass graft; Z91.19 Patient's noncompliance with other medical treatment and regimen; Z86.73 Personal history of transient ischemic attack (TIA), and cerebral infarction without residual deficits; Z79.01 Long term (current) use of anticoagulants; Z89.432 Acquired absence of left foot
CPT/HCPCS: 32555; 70450; 71250; 73721; 74176; 76705; 76770; 76942; 78226; 80307; 82270; 82271; 82465; 82570; 82805; 82945; 82947; 82962; 83605; 83615; 83735; 83930; 83935; 83986; 84100; 84132; 84133; 84145; 84155; 84156; 84157; 84165; 84166; 84300; 84540; 85362; 85379; 85384; 85651; 86850; 86900; 86901; 86920; 87015; 87040; 87070; 87081; 87086; 87101; 87106; 87205; 87324; 87449; 89050; 89051; 92526; 92610; 93005; 93306; 93925; 93926; 93970; 93971; 94002; 94003; 94660; 96361; 96374; 99285; A9537; C9113; J0295; J0637; J0692; J0878; J1450; J1644; J1815; J1940; J1956; J2060; J2270; J2370; J2543; J3370; J3480; J3490; J7030; J7040; J7050; J7060; P9016; P9046; P9047